=== PATIENT | female | born 1980 | race Caucasian/White ===

== ENCOUNTER 2016-10-28 21:21 | Emergency (ER) | payer OTHER ==
[~2016-10-28] VITALS: Ht 157.5 cm; Wt 75.6 kg
[~2016-10-28 21:21] MED LIST: ALPRAZOLAM1 MG PO; AMOXICILLIN500 MG OR; AMOXICILLIN500 MG PO; AMOXICILLIN875 MG PO; AMOXIL500 MG OR; ANBESOL MT; B-12500 MC1 PO; BACTRIM DS1 TAB PO; BENADRYL DF25 MG OR; BENTYL10 MG PO; BUSPIRONE5 MG PO; CARAFATE1 GM PO; CEPHALEXIN500 M1 PO; CIPRO500 MG OR; CIPRO500 MG PO; CIPROFLOXACN500 MG PO; CLARITIN10 MG OR; CODEINE OR; CVS OMEPRAZOLE20 MG PO; DARVOCET N-100100 - OR; DOXYCYC MONO100 M2 PO; E.E.S. 400400 MG OR; FLAGYL500 MG PO; FLEXERIL PO; HM OMEPRAZOLE20 MG PO; IBUPROFEN800 MG OR; LORTAB 1010 MG PO; LORTAB 5 OR; LORTAB 7.5-3251 TAB PO; LORTAB5 PO; MEDDOSEPAK PO; METRONIDAZOL500 MG PO; MOTRIN800 MG OR; NAPROSYN500 MG PO; NAPROXEN500 MG OR; NEXIUM40 M1 PO; NEXIUM40 MG PO; NO HOME MEDS; NO MEDS; OMEPRAZOLE20 MG PO; OMEPRAZOLE40 MG PO; ONDANSETRON4 MG OR; ORAJE1 MT; PANTOPRAZOLE SO40 M1 PO; PENICILLN VK500 MG OR; PENICILLN VK500 MG PO; PERCOCET 5/325M1 TAB OR; PERCOCET 5/325M1 TAB PO; PERIDEX0.12 % MT; PHENERGAN25 MG/TAB PO; PREVACID30 M1 PO; PREVACID30 M2 PO; PREVACID30 M3 PO; PREVPAC OR; PRILOSEC40 MG PO; PROMETHAZINE25 MG OR; PROMETHAZINE25 MG PO; PROTONIX40 M2 PO; PROTONIX40 MG PO; PYRIDIUM200 MG PO; QUETIAPINE FUM400 MG PO; REGLAN10 MG PO; REMERON15 MG PO; ROBITUSSIN AC10 ML OR; SEPTRA DS1 TAB OR; TRAMADOL HCL50 MG OR; TRAMADOL HCL50 MG PO; TRILEPTAL150 M1 PO; TRIMOX500 MG OR; ULTRAM50 M1 PO; ULTRAM50 MG OR; ULTRAM50 MG PO; VENTOLIN HFA IN; VITAMIN B-12500 MC1 SL; XANAX1 MG PO; ZANTAC150 M1 OR; ZOCOR20 MG OR; ZOFRAN ODT4 MG PO; ZOFRAN ODT8 MG PO; ZOFRAN ODT8 MG SL; ZOFRAN4 MG OR; ZOFRAN4 MG/TAB PO; [UNRECOGNIZED DRUG - OTHER] OR; [UNRECOGNIZED DRUG - REMARK] OR
[2016-10-28] MEDS ORDERED: PROTONIX40 M2 PO (21:54)
[2016-10-28] MEDS ORDERED: CARAFATE PO (21:54)
[2016-10-28 22:37] LABS: URINE BILIRUBIN - DIPSTICK NEGATIVE (NEGATIVE); URINE BLOOD DIPSTICK NEGATIVE (NEGATIVE); URINE CLARITY CLEAR; URINE COLOR YELLOW; URINE GLUCOSE - DIPSTICK NEGATIVE (NEGATIVE); URINE KETONE NEGATIVE (NEGATIVE); URINE LEUK ESTERASE NEGATIVE (NEGATIVE); URINE NITRITE - DIPSTICK NEGATIVE (Negative); URINE PH 7.5 (4.5-8.0); URINE PROTEIN - DIPSTICK TRACE mg/dL (NEG-TRACE); URINE SPECIFIC GRAVITY 1.015
[2016-10-28 22:40] LABS: HEMATOCRIT 38.7 % (37.0-47.0); HEMOGLOBIN 12.9 g/dl (12.0-16.0); IMMATURE GRANULOCYTES 0.1 % (0.0-1.0); MEAN CELL VOLUME 92.4 fL CALC (80.0-100.0); MEAN CORPUSCULAR HGB 30.8 pG CALC (26.0-32.0); MEAN CORPUSCULAR HGB CONC 33.3 g/L CALC (32.0-36.0); NEUT# 3.71 thou/uL (2.00-7.15); RED BLOOD COUNT 4.19 mill/uL (4.20-5.60); RED CELL DISTRI WIDTH 14.5 % (11.5-15.5)
[2016-10-28 22:57] LABS: ALBUMIN 3.7 g/dL (3.2-5.0); ALKALINE PHOSPHATASE 79 u/l (38-126); AMYLASE 73 u/l (30-110); ANION GAP 15 (6-22 (CALC)); BILIRUBIN, TOTAL 0.3 mg/dL (0.0-1.4); BUN 12 mg/dL (7-17); BUN/CREATININE RATIO 16 (12-20 (CALC)); CALCIUM 9.3 mg/dL (8.4-10.2); CARBON DIOXIDE 28 mmol/l (22-30); CHLORIDE 99 mmol/l (95-108); CREATININE 0.7 mg/dL (0.5-1.0); GFR > 60 ML/MIN (>=60 (CALC)); GFR FOR AFR.AMER. > 60 ML/MIN (>=60 (CALC)); GLUCOSE 88 mg/dL (65-105); LIPASE 273 u/l (23-300); POTASSIUM 4.3 mmol/l (3.5-5.1); SGOT/AST 140 u/l (14-36); SGPT/ALT 197 u/l (9-52); SODIUM 137 mmol/l (137-146); TOTAL PROTEIN 6.6 g/dL (6.3-8.2)
[2016-10-28 23:15] LABS: MYOGLOBIN 13 ng/mL (0 - 62)
[2016-10-29 05:45] VITALS: BP 101/50
== END 2016-10-29 06:40 | disposition home or self-care (01) | DRG 392 ==
LOC: ED 21:21
PROVIDERS: Emergency Medicine
DX: R10.13 Epigastric pain (principal); R11.0 Nausea
CPT/HCPCS: Q9967; S0164

== ENCOUNTER 2016-11-07 00:53 | Observation (INO) | payer OTHER ==
[~2016-11-07] VITALS: Ht 154.9 cm; Wt 71.6 kg
[~2016-11-07 00:53] MED LIST changes: +CARAFATE PO
[2016-11-07 02:05] LABS: HEMATOCRIT 39.2 % (37.0-47.0); HEMOGLOBIN 13.1 g/dl (12.0-16.0); IMMATURE GRANULOCYTES 0.1 % (0.0-1.0); MEAN CELL VOLUME 92.2 fL CALC (80.0-100.0); MEAN CORPUSCULAR HGB 30.8 pG CALC (26.0-32.0); MEAN CORPUSCULAR HGB CONC 33.4 g/L CALC (32.0-36.0); NEUT# 2.44 thou/uL (2.00-7.15); RED BLOOD COUNT 4.25 mill/uL (4.20-5.60); RED CELL DISTRI WIDTH 14.2 % (11.5-15.5)
[2016-11-07 02:18] LABS: ALBUMIN 3.8 g/dL (3.2-5.0); ALKALINE PHOSPHATASE 147 u/l (38-126); AMYLASE 148 u/l (30-110); ANION GAP 13 (6-22 (CALC)); BILIRUBIN, TOTAL 0.7 mg/dL (0.0-1.4); BUN 11 mg/dL (7-17); BUN/CREATININE RATIO 11 (12-20 (CALC)); CARBON DIOXIDE 30 mmol/l (22-30); CHLORIDE 100 mmol/l (95-108); GFR > 60 ML/MIN (>=60 (CALC)); GFR FOR AFR.AMER. > 60 ML/MIN (>=60 (CALC)); GLUCOSE 78 mg/dL (65-105); LIPASE 621 u/l (23-300); POTASSIUM 3.6 mmol/l (3.5-5.1); SGOT/AST 424 u/l (14-36); SGPT/ALT 737 u/l (9-52); SODIUM 139 mmol/l (137-146); TOTAL PROTEIN 7.4 g/dL (6.3-8.2)
[2016-11-07 02:29] LABS: MYOGLOBIN 29 ng/mL (0 - 62)
[2016-11-07 07:30] VITALS: BP 91/63
[2016-11-07 14:18] VITALS: BP 85/55
[2016-11-07 19:05] VITALS: BP 95/65
[2016-11-07 23:35] VITALS: BP 100/70
[2016-11-08 03:30] VITALS: BP 99/70
[2016-11-08 05:29] LABS: ALBUMIN 2.6 g/dL (3.2-5.0); ALKALINE PHOSPHATASE 119 u/l (38-126); AMYLASE 47 u/l (30-110); ANION GAP 9 (6-22 (CALC)); BUN 7 mg/dL (7-17); BUN/CREATININE RATIO 11 (12-20 (CALC)); CALCIUM 8.4 mg/dL (8.4-10.2); CARBON DIOXIDE 22 mmol/l (22-30); CHLORIDE 111 mmol/l (95-108); CREATININE 0.7 mg/dL (0.5-1.0); GFR > 60 ML/MIN (>=60 (CALC)); GFR FOR AFR.AMER. > 60 ML/MIN (>=60 (CALC)); GLUCOSE 102 mg/dL (65-105); HEMATOCRIT 37.3 % (37.0-47.0); HEMOGLOBIN 11.9 g/dl (12.0-16.0); IMMATURE GRANULOCYTES 0.4 % (0.0-1.0); LIPASE 98 u/l (23-300); MEAN CELL VOLUME 97.6 fL CALC (80.0-100.0); MEAN CORPUSCULAR HGB 31.2 pG CALC (26.0-32.0); MEAN CORPUSCULAR HGB CONC 31.9 g/L CALC (32.0-36.0); NEUT# 2.5 thou/uL (2.00-7.15); POTASSIUM 4.7 mmol/l (3.5-5.1); RED BLOOD COUNT 3.82 mill/uL (4.20-5.60); RED CELL DISTRI WIDTH 14.4 % (11.5-15.5); SGOT/AST 398 u/l (14-36); SGPT/ALT 576 u/l (9-52); SODIUM 137 mmol/l (137-146); TOTAL PROTEIN 5.6 g/dL (6.3-8.2)
[2016-11-08 07:56] VITALS: BP 106/74
[2016-11-08 11:20] VITALS: BP 85/56
[2016-11-08] MEDS ORDERED: PROTONIX40 M2 PO (12:55)
[2016-11-08] MEDS ORDERED: PERCOCET 5/325M1 TAB PO (12:55)
[2016-11-08] MEDS ORDERED: CARAFATE PO (12:55)
[2016-11-08] MEDS ORDERED: CREON3000 UNIT PO (13:01)
== END 2016-11-08 13:55 | disposition home or self-care (01) | DRG 440 ==
LOC: ENPENDDIS → ED 00:53 → ED-I 06:13 → ED 06:21 → MS2 06:22
PROVIDERS: Emergency Medicine; ADMIT Internal Medicine; ATTEND Internal Medicine
DX: K85.90 Acute pancreatitis without necrosis or infection, unspecified (principal); K25.9 Gastric ulcer, unspecified as acute or chronic, without hemorrhage or perforation; K86.0 Alcohol-induced chronic pancreatitis; K21.9 Gastro-esophageal reflux disease without esophagitis; F17.210 Nicotine dependence, cigarettes, uncomplicated; F41.9 Anxiety disorder, unspecified; F32.9 Major depressive disorder, single episode, unspecified; F12.90 Cannabis use, unspecified, uncomplicated; Z91.14 Patient's other noncompliance with medication regimen; Z76.5 Malingerer [conscious simulation]
CPT/HCPCS: S0164

== ENCOUNTER 2016-11-14 19:13 | Emergency (ER) | payer OTHER ==
[~2016-11-14] VITALS: Ht 154.9 cm; Wt 74.4 kg
[~2016-11-14 19:13] MED LIST changes: +CREON3000 UNIT PO
[2016-11-14 20:56] LABS: HEMATOCRIT 37.1 % (37.0-47.0); HEMOGLOBIN 12.2 g/dl (12.0-16.0); IMMATURE GRANULOCYTES 0.2 % (0.0-1.0); MEAN CELL VOLUME 93.5 fL CALC (80.0-100.0); MEAN CORPUSCULAR HGB 30.7 pG CALC (26.0-32.0); MEAN CORPUSCULAR HGB CONC 32.9 g/L CALC (32.0-36.0); NEUT# 3.29 thou/uL (2.00-7.15); RED BLOOD COUNT 3.97 mill/uL (4.20-5.60); RED CELL DISTRI WIDTH 14.8 % (11.5-15.5)
[2016-11-14 21:18] LABS: ALBUMIN 3.4 g/dL (3.2-5.0); ALKALINE PHOSPHATASE 120 u/l (38-126); AMYLASE 58 u/l (30-110); ANION GAP 13 (6-22 (CALC)); BILIRUBIN, TOTAL 0.4 mg/dL (0.0-1.4); BUN 7 mg/dL (7-17); BUN/CREATININE RATIO 9 (12-20 (CALC)); CALCIUM 9.2 mg/dL (8.4-10.2); CARBON DIOXIDE 24 mmol/l (22-30); CHLORIDE 106 mmol/l (95-108); CREATININE 0.7 mg/dL (0.5-1.0); GFR > 60 ML/MIN (>=60 (CALC)); GFR FOR AFR.AMER. > 60 ML/MIN (>=60 (CALC)); GLUCOSE 90 mg/dL (65-105); LIPASE 154 u/l (23-300); POTASSIUM 4.1 mmol/l (3.5-5.1); SGOT/AST 46 u/l (14-36); SGPT/ALT 236 u/l (9-52); SODIUM 138 mmol/l (137-146); TOTAL PROTEIN 6.6 g/dL (6.3-8.2)
[2016-11-14 21:40] LABS: URINE BILIRUBIN - DIPSTICK NEGATIVE (NEGATIVE); URINE BLOOD DIPSTICK NEGATIVE (NEGATIVE); URINE CLARITY CLEAR; URINE COLOR YELLOW; URINE GLUCOSE - DIPSTICK NEGATIVE (NEGATIVE); URINE KETONE NEGATIVE (NEGATIVE); URINE LEUK ESTERASE NEGATIVE (NEGATIVE); URINE NITRITE - DIPSTICK NEGATIVE (Negative); URINE PH 6.5 (4.5-8.0); URINE PROTEIN - DIPSTICK NEGATIVE (NEG-TRACE); URINE SPECIFIC GRAVITY <=1.005; URINE UROBILINOGEN - DIPSTICK 0.2 E.U./dL (0.2)
[2016-11-15 00:10] VITALS: BP 102/66
== END 2016-11-15 00:10 | disposition home or self-care (01) | DRG 392 ==
LOC: ED 19:13
PROVIDERS: Emergency Medicine
DX: R10.11 Right upper quadrant pain (principal); R11.2 Nausea with vomiting, unspecified; R10.12 Left upper quadrant pain
CPT/HCPCS: S0164

== ENCOUNTER 2016-11-20 20:21 | Emergency (ER) | payer OTHER ==
[~2016-11-20] VITALS: Ht 154.9 cm; Wt 73.6 kg
[2016-11-20 21:03] LABS: HEMATOCRIT 39.1 % (37.0-47.0); HEMOGLOBIN 12.9 g/dl (12.0-16.0); IMMATURE GRANULOCYTES 0.2 % (0.0-1.0); MEAN CELL VOLUME 92.4 fL CALC (80.0-100.0); MEAN CORPUSCULAR HGB 30.5 pG CALC (26.0-32.0); NEUT# 9.95 thou/uL (2.00-7.15); RED BLOOD COUNT 4.23 mill/uL (4.20-5.60)
[2016-11-20 21:04] LABS: URINE BILIRUBIN - DIPSTICK NEGATIVE (NEGATIVE); URINE BLOOD DIPSTICK NEGATIVE (NEGATIVE); URINE CLARITY CLEAR; URINE COLOR YELLOW; URINE GLUCOSE - DIPSTICK NEGATIVE (NEGATIVE); URINE KETONE NEGATIVE (NEGATIVE); URINE LEUK ESTERASE NEGATIVE (NEGATIVE); URINE NITRITE - DIPSTICK NEGATIVE (Negative); URINE PH 5.5 (4.5-8.0); URINE PROTEIN - DIPSTICK NEGATIVE (NEG-TRACE); URINE SPECIFIC GRAVITY <=1.005; URINE UROBILINOGEN - DIPSTICK 0.2 E.U./dL (0.2)
[2016-11-20 21:16] LABS: ALBUMIN 4.2 g/dL (3.2-5.0); ALKALINE PHOSPHATASE 96 u/l (38-126); AMYLASE 79 u/l (30-110); ANION GAP 14 (6-22 (CALC)); BILIRUBIN, TOTAL 0.3 mg/dL (0.0-1.4); BUN 13 mg/dL (7-17); BUN/CREATININE RATIO 16 (12-20 (CALC)); CALCIUM 9.6 mg/dL (8.4-10.2); CARBON DIOXIDE 23 mmol/l (22-30); CHLORIDE 103 mmol/l (95-108); CREATININE 0.8 mg/dL (0.5-1.0); GFR > 60 ML/MIN (>=60 (CALC)); GFR FOR AFR.AMER. > 60 ML/MIN (>=60 (CALC)); GLUCOSE 87 mg/dL (65-105); LIPASE 341 u/l (23-300); POTASSIUM 4.7 mmol/l (3.5-5.1); SGOT/AST 26 u/l (14-36); SGPT/ALT 65 u/l (9-52); SODIUM 135 mmol/l (137-146); TOTAL PROTEIN 7.6 g/dL (6.3-8.2)
[2016-11-20 21:28] LABS: MYOGLOBIN 14 ng/mL (0 - 62)
[2016-11-20 23:29] VITALS: BP 99/59
== END 2016-11-20 23:32 | disposition home or self-care (01) | DRG 816 ==
LOC: ED 20:21
PROVIDERS: Emergency Medicine
DX: D72.829 Elevated white blood cell count, unspecified (principal); G89.29 Other chronic pain; R10.84 Generalized abdominal pain

== ENCOUNTER 2016-11-25 17:03 | Emergency (ER) | payer OTHER ==
[~2016-11-25] VITALS: Ht 154.9 cm; Wt 70.0 kg
[2016-11-25 18:27] LABS: HEMOGLOBIN 12.5 g/dl (12.0-16.0); IMMATURE GRANULOCYTES 0.2 % (0.0-1.0); MEAN CELL VOLUME 93.8 fL CALC (80.0-100.0); MEAN CORPUSCULAR HGB 30.9 pG CALC (26.0-32.0); MEAN CORPUSCULAR HGB CONC 32.9 g/L CALC (32.0-36.0); NEUT# 3.25 thou/uL (2.00-7.15); RED BLOOD COUNT 4.05 mill/uL (4.20-5.60); RED CELL DISTRI WIDTH 13.8 % (11.5-15.5); URINE BILIRUBIN - DIPSTICK NEGATIVE (NEGATIVE); URINE BLOOD DIPSTICK NEGATIVE (NEGATIVE); URINE CLARITY CLEAR; URINE COLOR YELLOW; URINE GLUCOSE - DIPSTICK NEGATIVE (NEGATIVE); URINE KETONE NEGATIVE (NEGATIVE); URINE LEUK ESTERASE NEGATIVE (NEGATIVE); URINE NITRITE - DIPSTICK NEGATIVE (Negative); URINE PROTEIN - DIPSTICK NEGATIVE (NEG-TRACE); URINE UROBILINOGEN - DIPSTICK 0.2 E.U./dL (0.2)
[2016-11-25 18:28] LABS: ALBUMIN 3.6 g/dL (3.2-5.0); ALKALINE PHOSPHATASE 66 u/l (38-126); AMYLASE 65 u/l (30-110); ANION GAP 11 (6-22 (CALC)); BILIRUBIN, TOTAL 0.3 mg/dL (0.0-1.4); BUN 18 mg/dL (7-17); BUN/CREATININE RATIO 23 (12-20 (CALC)); CALCIUM 8.9 mg/dL (8.4-10.2); CARBON DIOXIDE 27 mmol/l (22-30); CHLORIDE 103 mmol/l (95-108); CREATININE 0.8 mg/dL (0.5-1.0); GFR > 60 ML/MIN (>=60 (CALC)); GFR FOR AFR.AMER. > 60 ML/MIN (>=60 (CALC)); GLUCOSE 80 mg/dL (65-105); LIPASE 96 u/l (23-300); POTASSIUM 4.1 mmol/l (3.5-5.1); SGOT/AST 40 u/l (14-36); SGPT/ALT 47 u/l (9-52); SODIUM 137 mmol/l (137-146); TOTAL PROTEIN 6.7 g/dL (6.3-8.2)
[2016-11-25 19:15] VITALS: BP 113/74
== END 2016-11-25 19:15 | disposition left against medical advice (07) | DRG 392 ==
LOC: ED 17:03
PROVIDERS: Emergency Medicine
DX: R10.11 Right upper quadrant pain (principal); B19.10 Unspecified viral hepatitis B without hepatic coma; K21.9 Gastro-esophageal reflux disease without esophagitis; F41.9 Anxiety disorder, unspecified; F17.210 Nicotine dependence, cigarettes, uncomplicated; Z91.19 Patient's noncompliance with other medical treatment and regimen

== ENCOUNTER 2016-12-11 21:37 | Emergency (ER) | payer OTHER ==
[~2016-12-11] VITALS: Ht 154.9 cm; Wt 76.4 kg
[2016-12-11 22:05] VITALS: BP 114/68
[2016-12-11] MEDS ORDERED: CARAFATE1 GM PO (22:07)
[2016-12-11 22:54] LABS: HEMATOCRIT 36.9 % (37.0-47.0); HEMOGLOBIN 12.4 g/dl (12.0-16.0); IMMATURE GRANULOCYTES 0.3 % (0.0-1.0); MEAN CELL VOLUME 91.6 fL CALC (80.0-100.0); MEAN CORPUSCULAR HGB 30.8 pG CALC (26.0-32.0); MEAN CORPUSCULAR HGB CONC 33.6 g/L CALC (32.0-36.0); NEUT# 3.77 thou/uL (2.00-7.15); RED BLOOD COUNT 4.03 mill/uL (4.20-5.60); RED CELL DISTRI WIDTH 13.8 % (11.5-15.5)
[2016-12-11 22:58] LABS: URINE BILIRUBIN - DIPSTICK NEGATIVE (NEGATIVE); URINE BLOOD DIPSTICK NEGATIVE (NEGATIVE); URINE CLARITY CLEAR; URINE COLOR YELLOW; URINE GLUCOSE - DIPSTICK NEGATIVE (NEGATIVE); URINE KETONE NEGATIVE (NEGATIVE); URINE LEUK ESTERASE NEGATIVE (NEGATIVE); URINE NITRITE - DIPSTICK NEGATIVE (Negative); URINE PH 6.5 (4.5-8.0); URINE PROTEIN - DIPSTICK NEGATIVE (NEG-TRACE); URINE SPECIFIC GRAVITY <=1.005; URINE UROBILINOGEN - DIPSTICK 0.2 E.U./dL (0.2)
[2016-12-11 23:08] LABS: ALBUMIN 3.9 g/dL (3.2-5.0); ALKALINE PHOSPHATASE 62 u/l (38-126); AMYLASE 48 u/l (30-110); ANION GAP 12 (6-22 (CALC)); BILIRUBIN, TOTAL 0.2 mg/dL (0.0-1.4); BUN 9 mg/dL (7-17); BUN/CREATININE RATIO 13 (12-20 (CALC)); CALCIUM 9.1 mg/dL (8.4-10.2); CARBON DIOXIDE 26 mmol/l (22-30); CHLORIDE 105 mmol/l (95-108); CREATININE 0.7 mg/dL (0.5-1.0); GFR > 60 ML/MIN (>=60 (CALC)); GFR FOR AFR.AMER. > 60 ML/MIN (>=60 (CALC)); GLUCOSE 88 mg/dL (65-105); LIPASE 123 u/l (23-300); SGOT/AST 101 u/l (14-36); SGPT/ALT 129 u/l (9-52); SODIUM 139 mmol/l (137-146); TOTAL PROTEIN 6.5 g/dL (6.3-8.2)
== END 2016-12-11 22:55 | disposition left against medical advice (07) | DRG 391 ==
LOC: ED 21:37
PROVIDERS: Emergency Medicine
DX: R10.9 Unspecified abdominal pain (principal); K85.90 Acute pancreatitis without necrosis or infection, unspecified; B19.10 Unspecified viral hepatitis B without hepatic coma; K21.9 Gastro-esophageal reflux disease without esophagitis; F41.9 Anxiety disorder, unspecified; F17.210 Nicotine dependence, cigarettes, uncomplicated; Z91.19 Patient's noncompliance with other medical treatment and regimen
CPT/HCPCS: S0164

== ENCOUNTER 2017-02-06 13:30 | Emergency (ER) | payer OTHER ==
[~2017-02-06] VITALS: Ht 154.9 cm; Wt 100.0 kg
[2017-02-06] MEDS ORDERED: PENICILLN VK500 MG PO (13:52)
[2017-02-06] MEDS ORDERED: LORTAB 5-325 MG1 TAB PO (13:52)
[2017-02-06 13:55] VITALS: BP 118/84
== END 2017-02-06 13:55 | disposition home or self-care (01) | DRG 159 ==
LOC: ED 13:30
DX: K08.89 Other specified disorders of teeth and supporting structures (principal); K02.9 Dental caries, unspecified

== ENCOUNTER 2017-03-01 16:39 | Emergency (ER) | payer OTHER ==
[~2017-03-01] VITALS: Ht 154.9 cm; Wt 68.1 kg
[~2017-03-01 16:39] MED LIST changes: +LORTAB 5-325 MG1 TAB PO
[2017-03-01] MEDS ORDERED: PHENERGAN25 MG/TAB PO (17:01)
[2017-03-01] MEDS ORDERED: PROZAC20 MG PO (17:02)
[2017-03-01] MEDS ORDERED: PEPCID20 MG PO (17:02)
[2017-03-01 17:37] LABS: HEMATOCRIT 36.7 % (37.0-47.0); HEMOGLOBIN 12.2 g/dl (12.0-16.0); IMMATURE GRANULOCYTES 0.4 % (0.0-1.0); MEAN CELL VOLUME 88.9 fL CALC (80.0-100.0); MEAN CORPUSCULAR HGB 29.5 pG CALC (26.0-32.0); MEAN CORPUSCULAR HGB CONC 33.2 g/L CALC (32.0-36.0); NEUT# 3.95 thou/uL (2.00-7.15); RED BLOOD COUNT 4.13 mill/uL (4.20-5.60); RED CELL DISTRI WIDTH 13.9 % (11.5-15.5); URINE BILIRUBIN - DIPSTICK NEGATIVE (NEGATIVE); URINE BLOOD DIPSTICK NEGATIVE (NEGATIVE); URINE CLARITY OTHER; URINE COLOR YELLOW; URINE GLUCOSE - DIPSTICK NEGATIVE (NEGATIVE); URINE KETONE NEGATIVE (NEGATIVE); URINE LEUK ESTERASE NEGATIVE (NEGATIVE); URINE NITRITE - DIPSTICK NEGATIVE (Negative); URINE PH 6.5 (4.5-8.0); URINE PROTEIN - DIPSTICK NEGATIVE (NEG-TRACE); URINE UROBILINOGEN - DIPSTICK 0.2 E.U./dL (0.2)
[2017-03-01 17:54] LABS: ALBUMIN 4.4 g/dL (3.2-5.0); ALKALINE PHOSPHATASE 56 u/l (38-126); AMYLASE 89 u/l (30-110); ANION GAP 15 (6-22 (CALC)); BILIRUBIN, TOTAL 0.6 mg/dL (0.0-1.4); BUN 12 mg/dL (7-17); BUN/CREATININE RATIO 20 (12-20 (CALC)); CALCIUM 9.3 mg/dL (8.4-10.2); CARBON DIOXIDE 24 mmol/l (22-30); CHLORIDE 104 mmol/l (95-108); CREATININE 0.6 mg/dL (0.5-1.0); GFR > 60 ML/MIN (>=60 (CALC)); GFR FOR AFR.AMER. > 60 ML/MIN (>=60 (CALC)); GLUCOSE 101 mg/dL (65-105); LIPASE 335 u/l (23-300); POTASSIUM 3.8 mmol/l (3.5-5.1); SGOT/AST 18 u/l (14-36); SGPT/ALT 25 u/l (9-52); SODIUM 139 mmol/l (137-146); TOTAL PROTEIN 7.7 g/dL (6.3-8.2)
[2017-03-01 18:06] LABS: MYOGLOBIN 15 ng/mL (0 - 62)
[2017-03-01] MEDS ORDERED: ZOFRAN4 MG/TAB PO (20:28)
[2017-03-01 20:50] VITALS: BP 111/67
== END 2017-03-01 21:06 | disposition home or self-care (01) | DRG 392 ==
LOC: ED 16:39
PROVIDERS: Emergency Medicine
DX: R10.11 Right upper quadrant pain (principal); B19.10 Unspecified viral hepatitis B without hepatic coma; G89.29 Other chronic pain; K21.9 Gastro-esophageal reflux disease without esophagitis; F41.9 Anxiety disorder, unspecified; Z96.89 Presence of other specified functional implants
CPT/HCPCS: Q9967

== ENCOUNTER 2017-04-30 10:06 | Emergency (ER) | payer OTHER ==
[~2017-04-30] VITALS: Ht 154.9 cm; Wt 61.0 kg
[~2017-04-30 10:06] MED LIST changes: +PEPCID20 MG PO; +PROZAC20 MG PO
[2017-04-30 11:29] LABS: HEMATOCRIT 39.3 % (37.0-47.0); HEMOGLOBIN 13.2 g/dl (12.0-16.0); IMMATURE GRANULOCYTES 0.2 % (0.0-1.0); MEAN CELL VOLUME 89.1 fL CALC (80.0-100.0); MEAN CORPUSCULAR HGB 29.9 pG CALC (26.0-32.0); MEAN CORPUSCULAR HGB CONC 33.6 g/L CALC (32.0-36.0); NEUT# 3.88 thou/uL (2.00-7.15); RED BLOOD COUNT 4.41 mill/uL (4.20-5.60); RED CELL DISTRI WIDTH 13.6 % (11.5-15.5)
[2017-04-30 12:04] LABS: ALKALINE PHOSPHATASE 64 u/l (38-126); ANION GAP 14 (6-22 (CALC)); BILIRUBIN, TOTAL 0.4 mg/dL (0.0-1.4); BUN 14 mg/dL (7-17); BUN/CREATININE RATIO 22 (12-20 (CALC)); CALCIUM 9.5 mg/dL (8.4-10.2); CARBON DIOXIDE 22 mmol/l (22-30); CHLORIDE 109 mmol/l (95-108); CREATININE 0.6 mg/dL (0.5-1.0); GFR > 60 ML/MIN (>=60 (CALC)); GFR FOR AFR.AMER. > 60 ML/MIN (>=60 (CALC)); GLUCOSE 94 mg/dL (65-105); LIPASE 310 u/l (23-300); POTASSIUM 4.1 mmol/l (3.5-5.1); SGOT/AST 23 u/l (14-36); SGPT/ALT 37 u/l (9-52); SODIUM 141 mmol/l (137-146)
[2017-04-30 13:14] LABS: URINE BILIRUBIN - DIPSTICK NEGATIVE (NEGATIVE); URINE BLOOD DIPSTICK NEGATIVE (NEGATIVE); URINE CLARITY CLEAR; URINE COLOR YELLOW; URINE GLUCOSE - DIPSTICK NEGATIVE (NEGATIVE); URINE KETONE NEGATIVE (NEGATIVE); URINE LEUK ESTERASE NEGATIVE (NEGATIVE); URINE NITRITE - DIPSTICK NEGATIVE (Negative); URINE PROTEIN - DIPSTICK NEGATIVE (NEG-TRACE); URINE UROBILINOGEN - DIPSTICK 0.2 E.U./dL (0.2)
[2017-04-30 15:32] VITALS: BP 109/65
== END 2017-04-30 15:43 | disposition home or self-care (01) | DRG 439 ==
LOC: ED 10:06
PROVIDERS: Family Medicine
DX: K85.90 Acute pancreatitis without necrosis or infection, unspecified (principal); B19.10 Unspecified viral hepatitis B without hepatic coma; R10.13 Epigastric pain; K21.9 Gastro-esophageal reflux disease without esophagitis; F41.9 Anxiety disorder, unspecified; Z93.1 Gastrostomy status

== ENCOUNTER 2017-08-07 11:33 | Emergency (ER) | payer SELFPAY ==
[~2017-08-07] VITALS: Ht 154.9 cm; Wt 68.0 kg
[2017-08-07 11:42] VITALS: BP 115/82
== END 2017-08-07 13:10 | disposition left against medical advice (07) | DRG 951 ==
LOC: ED 11:33 → LWOBS 13:10
DX: Z91.19 Patient's noncompliance with other medical treatment and regimen (principal)

== ENCOUNTER 2017-08-18 12:06 | Emergency (ER) | payer SELFPAY ==
[~2017-08-18] VITALS: Ht 154.9 cm; Wt 71.2 kg
[2017-08-18 13:47] LABS: HEMATOCRIT 41.3 % (37.0-47.0); HEMOGLOBIN 14.1 g/dl (12.0-16.0); IMMATURE GRANULOCYTES 0.2 % (0.0-1.0); MEAN CELL VOLUME 86.9 fL CALC (80.0-100.0); MEAN CORPUSCULAR HGB 29.7 pG CALC (26.0-32.0); MEAN CORPUSCULAR HGB CONC 34.1 g/L CALC (32.0-36.0); NEUT# 3.42 thou/uL (2.00-7.15); RED BLOOD COUNT 4.75 mill/uL (4.20-5.60); RED CELL DISTRI WIDTH 15.9 % (11.5-15.5)
[2017-08-18 13:54] LABS: URINE BLOOD DIPSTICK TRACE-INTACT (NEGATIVE); URINE COLOR YELLOW; URINE GLUCOSE - DIPSTICK NEGATIVE (NEGATIVE); URINE KETONE TRACE mg/dL (NEGATIVE); URINE LEUK ESTERASE NEGATIVE (NEGATIVE); URINE NITRITE - DIPSTICK NEGATIVE (Negative); URINE PH 5.5 (4.5-8.0); URINE PROTEIN - DIPSTICK 30 mg/dL (NEG-TRACE); URINE SPECIFIC GRAVITY >=1.030
[2017-08-18 13:59] LABS: URINE BILIRUBIN - DIPSTICK SMALL (NEGATIVE); URINE CLARITY CLEAR
[2017-08-18 14:02] LABS: ALKALINE PHOSPHATASE 83 u/l (38-126); AMYLASE 128 u/l (30-110); ANION GAP 21 (6-22 (CALC)); BILIRUBIN, TOTAL 0.7 mg/dL (0.0-1.4); BUN 18 mg/dL (7-17); BUN/CREATININE RATIO 23 (12-20 (CALC)); CARBON DIOXIDE 27 mmol/l (22-30); CHLORIDE 97 mmol/l (95-108); CREATININE 0.8 mg/dL (0.5-1.0); GFR > 60 ML/MIN (>=60 (CALC)); GFR FOR AFR.AMER. > 60 ML/MIN (>=60 (CALC)); LIPASE 459 u/l (23-300); POTASSIUM 3.5 mmol/l (3.5-5.1); SGOT/AST 34 u/l (14-36); SGPT/ALT 33 u/l (9-52); SODIUM 141 mmol/l (137-146)
[2017-08-18 14:11] LABS: URINE SQUAMOUS EPITHELIAL CELL MANY EPI/hpf (0-FEW)
[2017-08-18 14:55] LABS: BARBITURATES NEGATIVE (NEGATIVE); COCAINE NEGATIVE (NEGATIVE); METHADONE NEGATIVE (NEGATIVE); TETRAHYDROCANNABIONOL POSITIVE (NEGATIVE); TRICYLIC ANTIDEPRESSANTS NEGATIVE (NEGATIVE)
[2017-08-18 14:56] LABS: OXCYCODONE NEGATIVE (NEGATIVE)
[2017-08-18 16:30] VITALS: BP 109/62
== END 2017-08-18 16:40 | disposition home or self-care (01) | DRG 440 ==
LOC: ED 12:06
PROVIDERS: Emergency Medicine
DX: K86.1 Other chronic pancreatitis (principal); F12.90 Cannabis use, unspecified, uncomplicated; F15.90 Other stimulant use, unspecified, uncomplicated; R50.9 Fever, unspecified; R11.2 Nausea with vomiting, unspecified; R10.11 Right upper quadrant pain
CPT/HCPCS: Q9967

== ENCOUNTER 2017-10-13 19:36 | Emergency (ER) | payer SELFPAY ==
[~2017-10-13] VITALS: Ht 154.9 cm; Wt 73.6 kg
[2017-10-13 20:44] LABS: HEMATOCRIT 38.4 % (37.0-47.0); HEMOGLOBIN 12.8 g/dl (12.0-16.0); IMMATURE GRANULOCYTES 0.2 % (0.0-1.0); MEAN CORPUSCULAR HGB 30.3 pG CALC (26.0-32.0); MEAN CORPUSCULAR HGB CONC 33.3 g/L CALC (32.0-36.0); NEUT# 4.12 thou/uL (2.00-7.15); RED BLOOD COUNT 4.22 mill/uL (4.20-5.60); RED CELL DISTRI WIDTH 14.2 % (11.5-15.5)
[2017-10-13 20:58] LABS: ALKALINE PHOSPHATASE 66 u/l (38-126); ANION GAP 16 (6-22 (CALC)); BILIRUBIN, TOTAL 0.2 mg/dL (0.0-1.4); BUN 9 mg/dL (7-17); BUN/CREATININE RATIO 13 (12-20 (CALC)); CARBON DIOXIDE 23 mmol/l (22-30); CHLORIDE 106 mmol/l (95-108); CREATININE 0.7 mg/dL (0.5-1.0); GFR > 60 ML/MIN (>=60 (CALC)); GFR FOR AFR.AMER. > 60 ML/MIN (>=60 (CALC)); POTASSIUM 3.8 mmol/l (3.5-5.1); SGOT/AST 12 u/l (14-36); SGPT/ALT 27 u/l (9-52); SODIUM 141 mmol/l (137-146); TOTAL PROTEIN 6.5 g/dL (6.3-8.2)
[2017-10-13 21:00] LABS: ALBUMIN 3.6 g/dL (3.2-5.0)
[2017-10-14 01:16] VITALS: BP 120/75
== END 2017-10-14 01:24 | DRG 563 ==
LOC: ED 19:36
PROVIDERS: Emergency Medicine
DX: S63.91XA Sprain of unspecified part of right wrist and hand, initial encounter (principal); R22.31 Localized swelling, mass and lump, right upper limb; S61.451A Open bite of right hand, initial encounter; X58.XXXA Exposure to other specified factors, initial encounter; Y93.E9 Activity, other interior property and clothing maintenance; Y92.009 Unspecified place in unspecified non-institutional (private) residence as the place of occurrence of the external cause

== ENCOUNTER 2017-11-29 12:33 | Observation (INO) | payer SELFPAY ==
[~2017-11-29] VITALS: Ht 154.9 cm; Wt 70.0 kg
--- NOTE | 2017-11-29 12:40 | NUR ---
TO [place] ROOM
[2017-11-29 13:23] LABS: HEMATOCRIT 41.7 % (37.0-47.0); IMMATURE GRANULOCYTES 0.2 % (0.0-1.0); MEAN CELL VOLUME 92.5 fL CALC (80.0-100.0); MEAN CORPUSCULAR HGB CONC 33.6 g/L CALC (32.0-36.0); NEUT# 3.63 thou/uL (2.00-7.15); RED BLOOD COUNT 4.51 mill/uL (4.20-5.60); RED CELL DISTRI WIDTH 13.4 % (11.5-15.5)
--- NOTE | 2017-11-29 14:01 | NUR ---
PT MEDICATED FOR PAIN UPON ARRIVAL TO ROOM AND AGAIN RECENTLY. PT WITH HX PANCREATITIS STATES THAT THIS FEELS THE SAME. PT AMBULATORY TO BR FOR URINE SPECIMEN.
[2017-11-29 14:02] LABS: ALBUMIN 4.1 g/dL (3.2-5.0); ALKALINE PHOSPHATASE 56 u/l (38-126); ANION GAP 16 (6-22 (CALC)); BILIRUBIN, TOTAL 0.4 mg/dL (0.0-1.4); BUN 13 mg/dL (7-17); BUN/CREATININE RATIO 15 (12-20 (CALC)); CARBON DIOXIDE 23 mmol/l (22-30); CHLORIDE 106 mmol/l (95-108); CREATININE 0.9 mg/dL (0.5-1.0); GFR > 60 ML/MIN (>=60 (CALC)); GFR FOR AFR.AMER. > 60 ML/MIN (>=60 (CALC)); LIPASE 612 u/l (23-300); POTASSIUM 4.7 mmol/l (3.5-5.1); SGOT/AST 16 u/l (14-36); SGPT/ALT 28 u/l (9-52); SODIUM 140 mmol/l (137-146); TOTAL PROTEIN 6.9 g/dL (6.3-8.2)
[2017-11-29 14:11] LABS: URINE BILIRUBIN - DIPSTICK NEGATIVE (NEGATIVE); URINE BLOOD DIPSTICK NEGATIVE (NEGATIVE); URINE COLOR YELLOW; URINE GLUCOSE - DIPSTICK NEGATIVE (NEGATIVE); URINE KETONE NEGATIVE (NEGATIVE); URINE LEUK ESTERASE NEGATIVE (NEGATIVE); URINE NITRITE - DIPSTICK NEGATIVE (Negative); URINE PH 7.5 (4.5-8.0); URINE PROTEIN - DIPSTICK NEGATIVE (NEG-TRACE); URINE UROBILINOGEN - DIPSTICK 0.2 E.U./dL (0.2)
[2017-11-29 14:13] LABS: URINE CLARITY CLEAR
[2017-11-29 15:49] LABS: BARBITURATES NEGATIVE (NEGATIVE); COCAINE NEGATIVE (NEGATIVE); METHADONE NEGATIVE (NEGATIVE); OXCYCODONE NEGATIVE (NEGATIVE); TETRAHYDROCANNABIONOL POSITIVE (NEGATIVE); TRICYLIC ANTIDEPRESSANTS NEGATIVE (NEGATIVE)
--- NOTE | 2017-11-29 16:00 | NUR ---
PT PROVIDED DILAUDID FOR PAIN RELIEF, SEEN RESTING IN THE STRETCHER WITHOUT ANY EVIDENCE OF DISTRESS. PT AWARE OF PENDING ADMISSION, TO FLOOR SOON.
[2017-11-29] MEDS ORDERED: [UNRECOGNIZED DRUG - CODE] PO (16:10)
--- NOTE | 2017-11-29 16:40 | NUR ---
PT TAKEN TO ROOM 268 WITHOUT INCIDENT, REPORT WAS TO GEOFF.
[2017-11-29 16:48] VITALS: BP 112/75
--- NOTE | 2017-11-29 18:01 | NUR ---
REPORT RECEIVED FROM LUIS ANGEL IN ED, PT ARRIVED ON UNIT VIA STRETCHER @ 1636 AND TRANSFERRED TO BED. MOANING/GROANING AND GUARDING ABDOMEN REPORTING RUQ PAIN RADIATING TO BACK @ 9/10. ORIENTED TO ROOM AND CALL TUCKER, WILL CONTINUE TO MONITOR AND ADDRESS NEEDS.
--- NOTE | 2017-11-29 18:04 | NUR ---
CRYING AT THIS TIME, AWAITING MEDICATION PROFILING.
--- NOTE | 2017-11-29 18:22 | NUR ---
ROCKING AND SOBBING AT THIS TIME C/O ABD PAIN, MEDICATED WITH PERCOCET, ADVISED WILL CONTINUE TO MONITOR, ASSESS AND ADDRESS.
[2017-11-29 19:00] VITALS: BP 118/67
--- NOTE | 2017-11-29 19:51 | NUR ---
PATIENT RESTING IN BED-TEARFUL WITH NO RELIEF FROM PERCOCET. PATIENT MEDICATED WITH MORPHINE 2MG IVP ORDERED FOR PAIN ALONG WITH BENEDRYL 25MG PO FOR ITCHING. PATIENT PROVIDED WITH WARM PACKS FOR COMFORT-STATES SEVERE RUQ ABD PAIN. PATIENT WITH IV SITE TO RIGHT HAND WITH IVF NS PATENT AND INFUSING AT 175CC/HR ORDERED. SITE APPEARS HEALTHY AT THIS TIME. SAFETY PRECAUTIONS REINFORCED WITH PATIENT. CALL LIGHT IN REACH. WILL CONT TO MONITOR.
--- NOTE | 2017-11-29 21:00 | NUR ---
PATIENT APPEARS SLEEPING POSITIONED ON HER LEFT SIDE WITH S/O AT BEDSIDE. IVF PATENT AT 175CC/HR. CALL LIGHT IN REACH. WILL CONT TO MONITOR
--- NOTE | 2017-11-29 22:00 | NUR ---
PATIENT AWAKE AND C/O SEVERE ABD PAIN AGAIN-TOO EARLY FOR MORPHINE-MEDICATED WITH ULTRAM FOR C/O PAIN. PATIENT ALSO STATES THAT SHE TAKE XANAX 1MG TID AND THAT SHE CAN'T SLEEP WITHOUT IT. DR. WIGGINS CALLED AND ORDER RECIEVED. WILL MEDICATE PATIENT PRN ORDERED WHEN PROFILED ON EMAR. CALL LIGHT IN REACH. WILL CONT TO MONITOR.
--- NOTE | 2017-11-29 23:49 | NUR ---
PATIENT RESTING IN BED WITH S/O RESTING ON COT PROVIDED. PATIENT CONT TO COMPLAIN OF ABD PAIN 7/10 ON PAIN SCALE. MEDICATED WITH MORPHINE 2MG IVP FOR PAIN. PATIENT WAS OFFERED HER XANAX THAT SHE REQUESTED EARLIER BUT DECLINES AT THIS TIME. IVF PATENT AND INFUSING AT 175CC VIA RIGHT HAND SITE. SAFETY PRECAUTIONS REINFORCED. CALL LIGHT IN REACH. WILL CONT TO MONITOR.
[2017-11-30 04:05] VITALS: BP 85/52
--- NOTE | 2017-11-30 04:24 | NUR ---
APPEARS SLEEPING AT THIS TIME-POSITIONED ON LEFT SIDE. IVF PATENT AND INFUSING AT 175CC/HR. CALL LIGHT IN REACH. WILL CONT TO MONITOR.
[2017-11-30 05:43] LABS: CHOLESTEROL HDL RATIO 3.5 (<4.4 (CALC))
[2017-11-30 05:49] LABS: ANION GAP 14 (6-22 (CALC)); BUN 11 mg/dL (7-17); BUN/CREATININE RATIO 16 (12-20 (CALC)); CARBON DIOXIDE 23 mmol/l (22-30); CHLORIDE 108 mmol/l (95-108); CREATININE 0.7 mg/dL (0.5-1.0); GFR > 60 ML/MIN (>=60 (CALC)); GFR FOR AFR.AMER. > 60 ML/MIN (>=60 (CALC)); HEMOGLOBIN 13.2 g/dl (12.0-16.0); IMMATURE GRANULOCYTES 0.3 % (0.0-1.0); LIPASE 157 u/l (23-300); MAGNESIUM 1.9 mg/dL (1.6-2.3); MEAN CORPUSCULAR HGB 31.4 pG CALC (26.0-32.0); NEUT# 2.52 thou/uL (2.00-7.15); POTASSIUM 4.4 mmol/l (3.5-5.1); RED BLOOD COUNT 4.21 mill/uL (4.20-5.60); RED CELL DISTRI WIDTH 13.6 % (11.5-15.5); SODIUM 140 mmol/l (137-146)
--- NOTE | 2017-11-30 07:15 | NUR ---
REPORT RECEIVED FROM DIEGO GREEN;PT RESTING IN SUPINE POSITION WITH VISITOR AT BEDSIDE;INTRODUCED SELF TO PT AND POC DISCUSSED;PT STATES "I HAVE CHRONIC PANCREATITIS AND NOTHING IS HELPING. I NEED DILAUDID";PT EDUCATED THAT DILAUDID IS NOT ORDERED AT THIS TIME BUT SHE CAN BE MEDICATED WITH PRN PERCOCET OR MORPHINE,PT REFUSES MEDICATION ADMINISTRATION;IV SITE PATENT;CALL LIGHT IN REACH;WILL CONTINUE TO MONITOR
[2017-11-30 07:56] VITALS: BP 123/54
--- NOTE | 2017-11-30 08:10 | NUR ---
PT RESTING IN BED WITH FAMILY AT BEDSIDE;VS OBTAINED AND ASSESSMENT COMPLETED;PT COMPLAINS OF ABDOMINAL PAIN RATING 8/10 ON THE PAIN SCALE AND REQUESTS PAIN MEDICATION;PT MEDICATED WITH MORPHINE 2MG IVP PER ORDER AT THIS TIME,WILL MONITOR FOR EFFECT;RESPIRATIONS EVEN AND UNLABORED ON RA,CLEAR LUNG SOUNDS;ABDOMEN SOFT ON PALPATION AND HYPOACTIVE IN ALL 4 QUADRANTS,TENDERNESS TO RUQ;STRONG PEDAL PULSES;SKIN INTACT;#22G TO RIGHT HAND INFUSING NS @ 100ML/HR,SITE APPEARS HEALTHY;NICOTINE PATCH APPLIED TO JENNIFER;PT DENIES ANY OTHER CURRENT NEEDS;CALL LIGHT IN REACH;WILL CONTINUE TO MONITOR
--- NOTE | 2017-11-30 11:50 | NUR ---
PT RESTING IN SUPINE POSITION COMPLAINING OF ABDOMINAL PAIN RATING 8/10 ON THE PAIN SCALE AND REQUESTING PAIN MEDICATION;PT MEDICATED WITH PRN LORTAB 5/325MG PO AT THIS TIME,WILL MONITOR FOR EFFECT;IV SITE PATENT INFUSING @ 100ML/HR;PT DENIES ANY OTHER CURRENT NEEDS;CALL LIGHT IN REACH;WILL CONTINUE TO MONITOR
--- NOTE | 2017-11-30 13:00 | NUR ---
PT MEDICATED WITH PRN XANAX 1MG PO FOR ANXIETY
--- NOTE | 2017-11-30 15:20 | NUR ---
PT FOUND VOMITING IN BATHROOM;MEDICATED WITH PRN ZOFRAN 4MG IVP;IV SITE PATENT INFUSING TO RIGHT HAND;VALARIE PAL NOTIFIED
[2017-11-30 16:45] VITALS: BP 100/71
--- NOTE | 2017-11-30 17:30 | NUR ---
PT COMPLAINS OF ABDOMINAL PAIN RATING 10/10 ON THE PAIN SCALE;PT MEDICATED WITH PRN MORPHINE 2MG IVP,WILL MONITOR FOR EFFECT
[2017-11-30 19:05] VITALS: BP 117/82
--- NOTE | 2017-11-30 19:30 | NUR ---
PT RESTING IN BED AWAKE. VISITOR IN ROOM. PT IS ALERT AND ORIENTED X3. PERRLA. RESP ARE EVEN AND UNLABORED. NO DISTRESS NOTED. LUNGS ARE CLEAR.HR REGULAR. PULSES PALPABLE THROUGHOUT. NO EDEMA NOTED. BS ACTIVE. #22 RH NS @100CC.HR NO REDNESS OR EDEMA NOTED. CALL LIGHT IN REACH. WILL CONTINUE TO MONITOR
--- NOTE | 2017-12-01 00:26 | NUR ---
LORTAB 5/325MG PROVIDED FOR C/O RUQ PAIN 03/20.
--- NOTE | 2017-12-01 03:32 | NUR ---
MORPHINE 2MG IV PROVIDED FOR C/O ABDOMINAL PAIN 04/19. TOLERATING PO FLUIDS. FAMILY AT BED SIDE.
[2017-12-01 04:20] VITALS: BP 111/74
[2017-12-01 05:03] LABS: HEMATOCRIT 40.2 % (37.0-47.0); HEMOGLOBIN 13.2 g/dl (12.0-16.0); MEAN CELL VOLUME 93.9 fL CALC (80.0-100.0); MEAN CORPUSCULAR HGB 30.8 pG CALC (26.0-32.0); MEAN CORPUSCULAR HGB CONC 32.8 g/L CALC (32.0-36.0); NEUT# 2.7 thou/uL (2.00-7.15); RED BLOOD COUNT 4.28 mill/uL (4.20-5.60); RED CELL DISTRI WIDTH 13.4 % (11.5-15.5)
[2017-12-01 05:20] LABS: ANION GAP 13 (6-22 (CALC)); BUN 8 mg/dL (7-17); BUN/CREATININE RATIO 12 (12-20 (CALC)); CARBON DIOXIDE 24 mmol/l (22-30); CHLORIDE 108 mmol/l (95-108); CREATININE 0.7 mg/dL (0.5-1.0); GFR > 60 ML/MIN (>=60 (CALC)); GFR FOR AFR.AMER. > 60 ML/MIN (>=60 (CALC)); LIPASE 126 u/l (23-300); POTASSIUM 4.2 mmol/l (3.5-5.1); SODIUM 141 mmol/l (137-146)
--- NOTE | 2017-12-01 07:05 | NUR ---
BEDSIDE REPORT RECIVED BY SALVATORE. PT IS REQUESTING PAIN MEDICATION AND WILL BE CHECKING WHAT DUE. PT DENIES ANY OTHER NEEDS AT THIS TIME. CALL LIGHT IN REACH.
--- NOTE | 2017-12-01 07:30 | NUR ---
MEDICATED PT WITH LORTAB FOR PAIN SEE EMAR. ASSESSMENT DONE RESPS EVEN AND UNLABORED. NS 100ML/HR INFUSING WELL. SAFETY PRECAUTIONS REINFORCED AND CALL LIGHT IN REACH.
[2017-12-01 07:32] VITALS: BP 106/76
--- NOTE | 2017-12-01 11:34 | NUR ---
MEDICATED PT WITH LORTAB FOR ABDOMEN PAIN SEE EMAR. PT DENIES ANY OTHER NEEDS AT THIS TIME. FAMILY IN ROOM. CALL LIGHT IN REACH.
[2017-12-01] MEDS ORDERED: LORTAB 5/3255 MG PO (12:46)
[2017-12-01] MEDS ORDERED: ZOFRAN ODT4 MG PO (12:46)
[2017-12-01] MEDS ORDERED: PROTONIX40 M2 PO (12:46)
[2017-12-01] MEDS ORDERED: CARAFATE1 GM PO (12:46)
[2017-12-01] MEDS ORDERED: [UNRECOGNIZED DRUG - CODE] PO (12:46)
[2017-12-01] MEDS ORDERED: ALPRAZOLAM1 MG PO (12:46)
--- NOTE | 2017-12-01 15:39 | NUR ---
Discharge instructions given. Patient verbalizes understanding of same. Discharged in stable condition via Wheelchair to Home with volunteer. All belongings sent with pt.
== END 2017-12-01 15:40 | disposition home or self-care (01) | DRG 440 ==
LOC: ED 12:33 → ED-I 13:13 → ED 13:13 → ED-I 14:27 → ED 15:47 → MS2 15:48
PROVIDERS: Family Medicine; Nurse Practitioner Family; ADMIT Internal Medicine; ATTEND Internal Medicine
DX: K85.90 Acute pancreatitis without necrosis or infection, unspecified (principal); K86.0 Alcohol-induced chronic pancreatitis; F10.21 Alcohol dependence, in remission; F12.90 Cannabis use, unspecified, uncomplicated; F32.9 Major depressive disorder, single episode, unspecified; F41.9 Anxiety disorder, unspecified; F17.210 Nicotine dependence, cigarettes, uncomplicated; Z87.11 Personal history of peptic ulcer disease; Z91.14 Patient's other noncompliance with medication regimen
CPT/HCPCS: G0378; Q9967; S0164

== ENCOUNTER 2017-12-06 09:48 | Emergency (ER) | payer SELFPAY ==
[~2017-12-06] VITALS: Ht 154.9 cm; Wt 70.0 kg
[~2017-12-06 09:48] MED LIST changes: +LORTAB 5/3255 MG PO; +[UNRECOGNIZED DRUG - CODE] PO
[2017-12-06 10:28] LABS: HEMATOCRIT 43.9 % (37.0-47.0); HEMOGLOBIN 14.5 g/dl (12.0-16.0); IMMATURE GRANULOCYTES 0.3 % (0.0-1.0); MEAN CELL VOLUME 92.8 fL CALC (80.0-100.0); MEAN CORPUSCULAR HGB 30.7 pG CALC (26.0-32.0); NEUT# 3.85 thou/uL (2.00-7.15); RED BLOOD COUNT 4.73 mill/uL (4.20-5.60); RED CELL DISTRI WIDTH 13.5 % (11.5-15.5)
[2017-12-06 10:43] LABS: ALBUMIN 4.5 g/dL (3.2-5.0); ALKALINE PHOSPHATASE 65 u/l (38-126); ANION GAP 18 (6-22 (CALC)); BILIRUBIN, TOTAL 0.4 mg/dL (0.0-1.4); BUN 15 mg/dL (7-17); BUN/CREATININE RATIO 21 (12-20 (CALC)); CARBON DIOXIDE 23 mmol/l (22-30); CHLORIDE 104 mmol/l (95-108); CREATININE 0.7 mg/dL (0.5-1.0); ETHYL ALCOHOL 0 mg/dl (0-30); GFR > 60 ML/MIN (>=60 (CALC)); GFR FOR AFR.AMER. > 60 ML/MIN (>=60 (CALC)); LIPASE 238 u/l (23-300); POTASSIUM 4.7 mmol/l (3.5-5.1); SGOT/AST 19 u/l (14-36); SGPT/ALT 29 u/l (9-52); SODIUM 139 mmol/l (137-146); TOTAL PROTEIN 7.8 g/dL (6.3-8.2)
[2017-12-06 11:12] LABS: URINE BILIRUBIN - DIPSTICK NEGATIVE (NEGATIVE); URINE BLOOD DIPSTICK NEGATIVE (NEGATIVE); URINE CLARITY CLEAR; URINE COLOR YELLOW; URINE GLUCOSE - DIPSTICK NEGATIVE (NEGATIVE); URINE KETONE NEGATIVE (NEGATIVE); URINE LEUK ESTERASE NEGATIVE (NEGATIVE); URINE NITRITE - DIPSTICK NEGATIVE (Negative); URINE PH 8.5 (4.5-8.0); URINE PROTEIN - DIPSTICK NEGATIVE (NEG-TRACE); URINE UROBILINOGEN - DIPSTICK 0.2 E.U./dL (0.2)
[2017-12-06 11:15] LABS: COCAINE NEGATIVE (NEGATIVE); TETRAHYDROCANNABIONOL POSITIVE (NEGATIVE)
[2017-12-06 11:16] LABS: BARBITURATES NEGATIVE (NEGATIVE); METHADONE NEGATIVE (NEGATIVE); OXCYCODONE NEGATIVE (NEGATIVE); TRICYLIC ANTIDEPRESSANTS NEGATIVE (NEGATIVE)
[2017-12-06] MEDS ORDERED: PHENERGAN25 M1 PR (11:26)
[2017-12-06 11:35] VITALS: BP 117/81
== END 2017-12-06 11:35 | disposition home or self-care (01) | DRG 92 ==
LOC: ED 09:48
PROVIDERS: Emergency Medicine
DX: G89.29 Other chronic pain (principal); R10.13 Epigastric pain; R11.10 Vomiting, unspecified; K86.1 Other chronic pancreatitis; Z93.1 Gastrostomy status; F17.210 Nicotine dependence, cigarettes, uncomplicated
CPT/HCPCS: S0164

== ENCOUNTER 2017-12-14 05:09 | Observation (INO) | payer SELFPAY ==
[~2017-12-14] VITALS: Ht 154.9 cm; Wt 75.8 kg
[~2017-12-14 05:09] MED LIST changes: +PHENERGAN25 M1 PR
--- NOTE | 2017-12-14 05:22 | NUR ---
PATIENT AMBULATORY TO ROOM 8. UNDRESSED INTO A GOWN. AWAITING MD JIM.
[2017-12-14 06:32] LABS: URINE BILIRUBIN - DIPSTICK NEGATIVE (NEGATIVE); URINE BLOOD DIPSTICK NEGATIVE (NEGATIVE); URINE COLOR YELLOW; URINE GLUCOSE - DIPSTICK NEGATIVE (NEGATIVE); URINE KETONE NEGATIVE (NEGATIVE); URINE LEUK ESTERASE NEGATIVE (NEGATIVE); URINE NITRITE - DIPSTICK NEGATIVE (Negative); URINE PROTEIN - DIPSTICK NEGATIVE (NEG-TRACE); URINE UROBILINOGEN - DIPSTICK 0.2 E.U./dL (0.2)
[2017-12-14 06:33] LABS: IMMATURE GRANULOCYTES 0.1 % (0.0-1.0); MEAN CELL VOLUME 93.8 fL CALC (80.0-100.0); MEAN CORPUSCULAR HGB 31.3 pG CALC (26.0-32.0); MEAN CORPUSCULAR HGB CONC 33.3 g/L CALC (32.0-36.0); NEUT# 3.88 thou/uL (2.00-7.15); RED BLOOD COUNT 4.16 mill/uL (4.20-5.60); RED CELL DISTRI WIDTH 14.1 % (11.5-15.5)
[2017-12-14 06:37] LABS: URINE CLARITY SL CLOUDY
[2017-12-14 06:40] LABS: COCAINE NEGATIVE (NEGATIVE); METHADONE NEGATIVE (NEGATIVE); TETRAHYDROCANNABIONOL POSITIVE (NEGATIVE)
[2017-12-14 06:41] LABS: BARBITURATES NEGATIVE (NEGATIVE); OXCYCODONE NEGATIVE (NEGATIVE); TRICYLIC ANTIDEPRESSANTS NEGATIVE (NEGATIVE)
[2017-12-14 06:45] LABS: ALBUMIN 3.9 g/dL (3.2-5.0); ALKALINE PHOSPHATASE 62 u/l (38-126); AMYLASE 267 u/l (30-110); ANION GAP 16 (6-22 (CALC)); BILIRUBIN, TOTAL 0.3 mg/dL (0.0-1.4); BUN 15 mg/dL (7-17); BUN/CREATININE RATIO 22 (12-20 (CALC)); CARBON DIOXIDE 22 mmol/l (22-30); CHLORIDE 108 mmol/l (95-108); CREATININE 0.7 mg/dL (0.5-1.0); GFR > 60 ML/MIN (>=60 (CALC)); GFR FOR AFR.AMER. > 60 ML/MIN (>=60 (CALC)); LIPASE 1557 u/l (23-300); SGOT/AST 19 u/l (14-36); SGPT/ALT 28 u/l (9-52); SODIUM 142 mmol/l (137-146); TOTAL PROTEIN 7.1 g/dL (6.3-8.2)
--- NOTE | 2017-12-14 06:50 | NUR ---
CARAFATE WAS GIVEN PO AT 0645. BAR CODE WAS DAMAGED AND WOULD NOT SCAN.
--- NOTE | 2017-12-14 06:52 | NUR ---
REPORT RECEIVED FROM DIEGO MURDOCK.
--- NOTE | 2017-12-14 07:00 | NUR ---
PATIENT RESTING ON STRETCHER, RESPIRATIONS EVEN AND UNLABORED. BOWEL SOUNDS ACTIVE TENDERNESS NOTED TO RUQ WHEN PALPATED, RATES PAIN 7/10 AT THIS TIME. CALL LIGHT GIVEN, INFORMED TO CALL FOR ASSISTANCE. VERBAL UNDERSTANDING. WILL CONTINUE TO MONITOR.
--- NOTE | 2017-12-14 07:37 | NUR ---
ROD RETURNS FROM RADIOLOGY DEPARTMENT REQUESTING PAIN MEDICATION FOR PAIN LEVEL 8/10 AND NAUSEA. INFORMED. AWAITING NEW ORDERS.
--- NOTE | 2017-12-14 07:59 | NUR ---
PATIENT MEDICATED WITH 4 MG OF ZOFRAN, PATIENT DEVELOPED URTICARIA. MD INFORMED AND AT BEDSIDE TO DISCUSS RESULTS AND PLAN OF CARE.
--- NOTE | 2017-12-14 08:26 | NUR ---
ATTEMPT MADE TO CALL REPORT, SPOKE TO OSEI. STATES NURSE WILL CALL BACK FOR REPORT.
--- NOTE | 2017-12-14 08:41 | NUR ---
PATIENT REPORTS PAIN LEVEL 7/10 AT THIS TIME. AMBULATES TO BATHROOM WITH STEADY GAIT.
--- NOTE | 2017-12-14 09:00 | NUR ---
REPORT GIVEN TO DIEGO MCCRACKEN.
--- NOTE | 2017-12-14 09:10 | NUR ---
ROD TRANSPORTED TO [facility] VIA WHEELCHAIR. RREPORT GIVEN TO DIEGO MCCRACKEN. CARE RELINQUISHED
--- NOTE | 2017-12-14 09:13 | NUR ---
PT CAME FROM ER VIA WHEELCHAIR BY [place]. SAFETY PRECAUTIONS REINFORCED AND CALL LIGHT IN REACH.
[2017-12-14 09:28] VITALS: BP 117/62
--- NOTE | 2017-12-14 12:32 | NUR ---
ASSESSMENT DONE. RESPS EVEN AND UNLABORED. #20 LH THAT APPEARS HEALTHY. POC DISCUSS WITH PT. PT DENIES NEEDS AT THIS TIME. CALL LIGHT IN REACH.
[2017-12-14 16:00] VITALS: BP 99/52
--- NOTE | 2017-12-14 16:00 | NUR ---
PT IS RESTING IN BED WITH NO S/S OF DISTRESS NOTED. PT DENIES NEEDS AT THIS TIME. CALL LIGHT IN REACH.
[2017-12-14 18:40] VITALS: BP 92/70
--- NOTE | 2017-12-14 20:06 | NUR ---
PT DOUBLED OVER IN BED C/O ABDOMINAL PAIN 04/19, AND NAUSEA. PHENERGAN IV PROVIDED PER SEP, TOO EARLY FOR LORTAB, PT AWARE. DR. GIRALDO NOTIFIED OF PT'S PAIN, NEW ORDERS RECEIVED. NS INFUSING TO RH AT 50CC/HR. CALL LIGHT IN REACH, WILL CONTINUE TO MONITOR. B/P 92/70, HR 63, PT STATES HER B/P ALWAYS RUNS LOW.
--- NOTE | 2017-12-14 21:27 | NUR ---
DILAUDID 0.5MG IV ADMINISTERED PER MAR FOR C/O ABDOMINAL PAIN 03/20. PO FLUIDS AND CALL LIGHT IN REACH, WILL CONTINUE TO MONITOR.
--- NOTE | 2017-12-15 01:37 | NUR ---
C/O PAIN TO ABDOMEN RADIATING TO BACK 04/19, LORTAB PROVIDED.
--- NOTE | 2017-12-15 02:15 | NUR ---
PT DENIES ANY PAIN RELIEF FROM LORTAB, C/O PAIN 04/19 DILAUDID IV ADMINISTERED PER SEP, ADMITS TO VOMITING IN BATHROOM, PHENERGAN IV ALSO ADMINISTERED PER SEP.
--- NOTE | 2017-12-15 04:10 | NUR ---
MORNING BLOOD WORK DRAWN BY RAIL SPECIALIST, TOLERATED WELL.
[2017-12-15 05:02] VITALS: BP 121/61
[2017-12-15 05:27] LABS: HEMOGLOBIN 12.1 g/dl (12.0-16.0); IMMATURE GRANULOCYTES 0.3 % (0.0-1.0); MEAN CELL VOLUME 96.1 fL CALC (80.0-100.0); MEAN CORPUSCULAR HGB 31.4 pG CALC (26.0-32.0); MEAN CORPUSCULAR HGB CONC 32.7 g/L CALC (32.0-36.0); NEUT# 5.35 thou/uL (2.00-7.15); RED BLOOD COUNT 3.85 mill/uL (4.20-5.60); RED CELL DISTRI WIDTH 14.1 % (11.5-15.5)
[2017-12-15 05:47] LABS: ANION GAP 16 (6-22 (CALC)); BUN 9 mg/dL (7-17); BUN/CREATININE RATIO 14 (12-20 (CALC)); CARBON DIOXIDE 23 mmol/l (22-30); CHLORIDE 108 mmol/l (95-108); CREATININE 0.7 mg/dL (0.5-1.0); GFR > 60 ML/MIN (>=60 (CALC)); GFR FOR AFR.AMER. > 60 ML/MIN (>=60 (CALC)); LIPASE 89 u/l (23-300); MAGNESIUM 1.9 mg/dL (1.6-2.3); POTASSIUM 4.4 mmol/l (3.5-5.1); SODIUM 143 mmol/l (137-146)
--- NOTE | 2017-12-15 07:09 | NUR ---
REPORT RECEIVED BY SALVATORE. PT STATED THAT SHE HAS PAIN IN HER ABDOMEN AND BACK . SALVATORE MEDICATED PT WITH DILAUDID SEE EMAR. PT DENIES ANY OTHER NEEDS AT THIS TIME. CALL LIGHT IN REACH.
[2017-12-15 08:00] VITALS: BP 98/55
--- NOTE | 2017-12-15 08:00 | NUR ---
ASSESSMENT DONE. RESPS EVEN AND UNLABORED. PT STATED PAIN IS 6/10 IN PAIN. TOLD WILL CHECK WHAT MEDICATION PAIN IS DUE. PT VERBALZIED UNDERSTANDING. PT DENIES ANY OTHER NEEDS AT THIS TIME. SAFETY PRECAUTIONS REINFORCED AND CALL LIGHT IN REACH.
--- NOTE | 2017-12-15 12:00 | NUR ---
PROVIDED A WARM BLAKNET FOR PT BACK DUE TO PAIN. NO S/S OF DISTRESS NOTED. PT IS VISITING IN ROOM WITH FRIEND. CALL LIGHT IN REACH.
[2017-12-15] MEDS ORDERED: LORTAB 5/3255 MG PO (12:22)
[2017-12-15] MEDS ORDERED: ALPRAZOLAM1 MG PO (12:22)
[2017-12-15] MEDS ORDERED: [UNRECOGNIZED DRUG - CODE] PO (12:22)
--- NOTE | 2017-12-15 13:10 | NUR ---
Discharge instructions given. Patient verbalizes understanding of same. Discharged in stable condition via WALKING to Home with family. All belongings sent with pt.
== END 2017-12-15 13:10 | disposition home or self-care (01) | DRG 440 ==
LOC: ED 05:09 → ED-I 07:42 → ED 07:51 → MS2 07:52
PROVIDERS: Emergency Medicine; Nurse Practitioner Family; ADMIT Internal Medicine; ATTEND Internal Medicine
DX: K85.90 Acute pancreatitis without necrosis or infection, unspecified (principal); F12.90 Cannabis use, unspecified, uncomplicated; K86.0 Alcohol-induced chronic pancreatitis; F17.210 Nicotine dependence, cigarettes, uncomplicated; K27.9 Peptic ulcer, site unspecified, unspecified as acute or chronic, without hemorrhage or perforation; R91.1 Solitary pulmonary nodule; F41.9 Anxiety disorder, unspecified; F32.9 Major depressive disorder, single episode, unspecified; Z91.14 Patient's other noncompliance with medication regimen
CPT/HCPCS: G0378; S0164

== ENCOUNTER 2017-12-23 04:54 | Emergency (ER) | payer SELFPAY ==
[~2017-12-23] VITALS: Ht 154.9 cm; Wt 68.0 kg
[2017-12-23 05:26] LABS: HEMATOCRIT 41.8 % (37.0-47.0); IMMATURE GRANULOCYTES 0.2 % (0.0-1.0); MEAN CORPUSCULAR HGB 31.8 pG CALC (26.0-32.0); MEAN CORPUSCULAR HGB CONC 33.5 g/L CALC (32.0-36.0); NEUT# 3.38 thou/uL (2.00-7.15); RED BLOOD COUNT 4.4 mill/uL (4.20-5.60); RED CELL DISTRI WIDTH 13.9 % (11.5-15.5)
[2017-12-23 05:48] LABS: ALKALINE PHOSPHATASE 60 u/l (38-126); AMYLASE 133 u/l (30-110); ANION GAP 10 (6-22 (CALC)); BILIRUBIN, TOTAL 0.2 mg/dL (0.0-1.4); BUN 18 mg/dL (7-17); BUN/CREATININE RATIO 24 (12-20 (CALC)); CARBON DIOXIDE 26 mmol/l (22-30); CHLORIDE 106 mmol/l (95-108); CREATININE 0.8 mg/dL (0.5-1.0); GFR > 60 ML/MIN (>=60 (CALC)); GFR FOR AFR.AMER. > 60 ML/MIN (>=60 (CALC)); LIPASE 334 u/l (23-300); POTASSIUM 4.2 mmol/l (3.5-5.1); SGOT/AST 23 u/l (14-36); SGPT/ALT 25 u/l (9-52); SODIUM 137 mmol/l (137-146); TOTAL PROTEIN 7.2 g/dL (6.3-8.2)
[2017-12-23] MEDS ORDERED: REGLAN10 MG PO (06:28)
[2017-12-23] MEDS ORDERED: LORTAB 1010 MG PO (06:28)
[2017-12-23 06:29] VITALS: BP 119/70
== END 2017-12-23 06:57 | disposition home or self-care (01) | DRG 392 ==
LOC: ED 04:54
PROVIDERS: Emergency Medicine
DX: R10.13 Epigastric pain (principal); R11.2 Nausea with vomiting, unspecified

== ENCOUNTER 2018-02-03 15:47 | Inpatient (IN) | payer SELFPAY ==
[~2018-02-03] VITALS: Ht 154.9 cm; Wt 74.4 kg
[2018-02-03 16:52] LABS: HEMATOCRIT 47.1 % (37.0-47.0); IMMATURE GRANULOCYTES 0.4 % (0.0-5.0); MEAN CELL VOLUME 93.3 fL CALC (80.0-100.0); MEAN CORPUSCULAR HGB 31.7 pG CALC (26.0-32.0); NEUT# 2.92 thou/uL (2.00-7.15); RED BLOOD COUNT 5.05 mill/uL (4.20-5.60); RED CELL DISTRI WIDTH 12.6 % (11.5-15.5)
[2018-02-03 17:14] LABS: ALBUMIN 4.5 g/dL (3.2-5.0); ALKALINE PHOSPHATASE 74 u/l (38-126); ANION GAP 16 (6-22 (CALC)); BILIRUBIN, TOTAL 0.3 mg/dL (0.0-1.4); BUN 18 mg/dL (7-17); BUN/CREATININE RATIO 25 (12-20 (CALC)); CARBON DIOXIDE 23 mmol/l (22-30); CHLORIDE 105 mmol/l (95-108); CREATININE 0.7 mg/dL (0.5-1.0); GFR > 60 ML/MIN (>=60 (CALC)); GFR FOR AFR.AMER. > 60 ML/MIN (>=60 (CALC)); LIPASE 1563 u/l (23-300); POTASSIUM 4.7 mmol/l (3.5-5.1); SGOT/AST 19 u/l (14-36); SGPT/ALT 27 u/l (9-52); SODIUM 139 mmol/l (137-146); TOTAL PROTEIN 7.8 g/dL (6.3-8.2)
[2018-02-03] MEDS ORDERED: CARAFATE1 GM PO (20:42)
[2018-02-03 20:55] VITALS: BP 93/63
[2018-02-03 23:35] LABS: URINE BILIRUBIN - DIPSTICK NEGATIVE (NEGATIVE); URINE BLOOD DIPSTICK TRACE-LYSED (NEGATIVE); URINE COLOR YELLOW; URINE GLUCOSE - DIPSTICK NEGATIVE (NEGATIVE); URINE KETONE NEGATIVE (NEGATIVE); URINE LEUK ESTERASE NEGATIVE (NEGATIVE); URINE NITRITE - DIPSTICK NEGATIVE (Negative); URINE PH 5.5 (4.5-8.0); URINE PROTEIN - DIPSTICK NEGATIVE (NEG-TRACE); URINE UROBILINOGEN - DIPSTICK 0.2 E.U./dL (0.2)
[2018-02-03 23:36] LABS: URINE CLARITY CLEAR
[2018-02-04 05:13] VITALS: BP 101/52
[2018-02-04 08:48] VITALS: BP 90/63
[2018-02-04] MEDS ORDERED: PERCOCET 10/31 COMBO PO (12:25)
== END 2018-02-04 13:15 | disposition home or self-care (01) | DRG 440 ==
LOC: ED 15:47 → ED-I 19:43 → ED 19:55 → MS2 19:56
PROVIDERS: Family Medicine; ADMIT General Practice; ATTEND General Practice
DX: K85.90 Acute pancreatitis without necrosis or infection, unspecified (principal); K86.1 Other chronic pancreatitis; E86.0 Dehydration; F17.210 Nicotine dependence, cigarettes, uncomplicated; F32.9 Major depressive disorder, single episode, unspecified; F41.9 Anxiety disorder, unspecified; Z87.11 Personal history of peptic ulcer disease

== ENCOUNTER 2018-03-02 11:14 | Emergency (ER) | payer SELFPAY ==
[~2018-03-02] VITALS: Ht 154.9 cm; Wt 68.2 kg
[~2018-03-02 11:14] MED LIST changes: +PERCOCET 10/31 COMBO PO
[2018-03-02 11:56] LABS: HEMATOCRIT 44.7 % (37.0-47.0); HEMOGLOBIN 15.1 g/dl (12.0-16.0); IMMATURE GRANULOCYTES 0.1 % (0.0-5.0); MEAN CELL VOLUME 92.7 fL CALC (80.0-100.0); MEAN CORPUSCULAR HGB 31.3 pG CALC (26.0-32.0); MEAN CORPUSCULAR HGB CONC 33.8 g/L CALC (32.0-36.0); NEUT# 2.49 thou/uL (2.00-7.15); RED BLOOD COUNT 4.82 mill/uL (4.20-5.60); RED CELL DISTRI WIDTH 12.6 % (11.5-15.5)
[2018-03-02 12:23] LABS: ALBUMIN 4.6 g/dL (3.2-5.0); ALKALINE PHOSPHATASE 66 u/l (38-126); ANION GAP 19 (6-22 (CALC)); BILIRUBIN, TOTAL 0.5 mg/dL (0.0-1.4); BUN 22 mg/dL (7-17); BUN/CREATININE RATIO 32 (12-20 (CALC)); CARBON DIOXIDE 23 mmol/l (22-30); CHLORIDE 104 mmol/l (95-108); CREATININE 0.7 mg/dL (0.5-1.0); GFR > 60 ML/MIN (>=60 (CALC)); GFR FOR AFR.AMER. > 60 ML/MIN (>=60 (CALC)); LIPASE 1056 u/l (23-300); POTASSIUM 4.6 mmol/l (3.5-5.1); SGOT/AST 29 u/l (14-36); SGPT/ALT 32 u/l (9-52); SODIUM 141 mmol/l (137-146)
[2018-03-02 19:37] LABS: URINE BILIRUBIN - DIPSTICK NEGATIVE (NEGATIVE); URINE BLOOD DIPSTICK NEGATIVE (NEGATIVE); URINE COLOR YELLOW; URINE GLUCOSE - DIPSTICK NEGATIVE (NEGATIVE); URINE KETONE NEGATIVE (NEGATIVE); URINE LEUK ESTERASE NEGATIVE (NEGATIVE); URINE NITRITE - DIPSTICK NEGATIVE (Negative); URINE PROTEIN - DIPSTICK NEGATIVE (NEG-TRACE); URINE SPECIFIC GRAVITY >=1.030; URINE UROBILINOGEN - DIPSTICK 0.2 E.U./dL (0.2)
[2018-03-02 19:38] LABS: URINE CLARITY CLEAR
[2018-03-02 19:50] VITALS: BP 117/65
== END 2018-03-02 19:50 | disposition still patient (30) | DRG 440 ==
LOC: ED 11:14
PROVIDERS: Family Medicine
DX: K85.90 Acute pancreatitis without necrosis or infection, unspecified (principal); F17.210 Nicotine dependence, cigarettes, uncomplicated

== ENCOUNTER 2018-03-17 09:46 | Emergency (ER) | payer SELFPAY | END 2018-03-17 09:57 | disposition left against medical advice (07) | DRG 951 | LOC: ED 09:46 → LWOBS 09:56 | DX: Z91.19 Patient's noncompliance with other medical treatment and regimen (principal) ==

== ENCOUNTER 2018-05-14 19:33 | Emergency (ER) | payer SELFPAY ==
[~2018-05-14] VITALS: Ht 154.9 cm; Wt 65.0 kg
[2018-05-14] MEDS ORDERED: AMOXICILLIN500 MG PO (20:22)
[2018-05-14 20:30] VITALS: BP 144/70
== END 2018-05-14 20:30 | disposition home or self-care (01) | DRG 159 ==
LOC: ED 19:33
DX: K02.9 Dental caries, unspecified (principal); K08.89 Other specified disorders of teeth and supporting structures; F17.290 Nicotine dependence, other tobacco product, uncomplicated

== ENCOUNTER 2018-10-29 22:27 | Inpatient (IN) | payer SELFPAY ==
[~2018-10-29] VITALS: Ht 154.9 cm; Wt 71.0 kg
--- NOTE | 2018-10-29 22:34 | NUR ---
AMBULATED TO ROOM
[2018-10-29 23:18] LABS: IMMATURE GRANULOCYTES 0.3 % (0.0-5.0); MEAN CELL VOLUME 93.6 fL CALC (80.0-100.0); MEAN CORPUSCULAR HGB 31.4 pG CALC (26.0-32.0); MEAN CORPUSCULAR HGB CONC 33.5 g/L CALC (32.0-36.0); NEUT# 6.59 thou/uL (2.00-7.15); RED CELL DISTRI WIDTH 12.5 % (11.5-15.5)
[2018-10-29 23:24] LABS: COCAINE NEGATIVE (NEGATIVE); METHADONE NEGATIVE (NEGATIVE); TETRAHYDROCANNABIONOL POSITIVE (NEGATIVE)
[2018-10-29 23:25] LABS: BARBITURATES NEGATIVE (NEGATIVE); OXCYCODONE NEGATIVE (NEGATIVE); TRICYLIC ANTIDEPRESSANTS NEGATIVE (NEGATIVE)
--- NOTE | 2018-10-29 23:26 | NUR ---
IVF, IV PAIN MED AND IM ANTIEMETIC GIVEN PER MD ORDER.
[2018-10-29 23:28] LABS: HEMATOCRIT 46.8 % (37.0-47.0); HEMOGLOBIN 15.7 g/dl (12.0-16.0)
[2018-10-30 00:02] LABS: ALKALINE PHOSPHATASE 67 u/l (38-126); AMYLASE 205 u/l (30-110); ANION GAP 13 (6-22 (CALC)); BILIRUBIN, TOTAL 0.2 mg/dL (0.0-1.4); BUN 17 mg/dL (7-17); BUN/CREATININE RATIO 23 (12-20 (CALC)); CARBON DIOXIDE 24 mmol/l (22-30); CHLORIDE 106 mmol/l (95-108); CREATININE 0.7 mg/dL (0.5-1.0); GFR > 60 ML/MIN (>=60 (CALC)); GFR FOR AFR.AMER. > 60 ML/MIN (>=60 (CALC)); LIPASE 1100 u/l (23-300); POTASSIUM 4.1 mmol/l (3.5-5.1); SGOT/AST 16 u/l (14-36); SODIUM 138 mmol/l (137-146); TOTAL PROTEIN 6.5 g/dL (6.3-8.2)
--- NOTE | 2018-10-30 00:44 | NUR ---
RETURNED FROM CT
--- NOTE | 2018-10-30 02:07 | NUR ---
PT. REQUESTING MORE PAIN MED AT THIS TIME, AWARE.
--- NOTE | 2018-10-30 02:49 | NUR ---
Admission Note Report Given to: REYMUNDO CORTEZ Transported by: Wheelchair X Stretcher Transported with: X Nurse Transporter X Patent IV O2 Engraver [employer]
--- NOTE | 2018-10-30 02:50 | NUR ---
PT. STATES HER ABD. PAIN IS NOW DECREASED TO A 6 ON A SCALE OF 1-10.
--- NOTE | 2018-10-30 03:00 | NUR ---
PT. TAKEN TO [facility] FLOOR VIA STRETCHER.
--- NOTE | 2018-10-30 03:10 | NUR ---
RECEIVED REPORT FROM ER NURSE SARAI SQUIRES PANCREATITIS, HAS A G22 RT HAND SALINE LOCK PATENT FLUSHES WELL, LAST BM 10/29, PATIENT SETTLED IN BED, ORIENTED TO PHONE AND CALL LIGHT SYSTEM, REINFORCED ON NPO STATUS.
[2018-10-30 03:15] VITALS: BP 117/67
[2018-10-30 05:30] LABS: HEMATOCRIT 41.9 % (37.0-47.0); IMMATURE GRANULOCYTES 0.3 % (0.0-5.0); MEAN CELL VOLUME 95.9 fL CALC (80.0-100.0); MEAN CORPUSCULAR HGB 30.9 pG CALC (26.0-32.0); MEAN CORPUSCULAR HGB CONC 32.2 g/L CALC (32.0-36.0); NEUT# 5.55 thou/uL (2.00-7.15); RED BLOOD COUNT 4.37 mill/uL (4.20-5.60); RED CELL DISTRI WIDTH 12.5 % (11.5-15.5)
[2018-10-30 05:36] LABS: HEMOGLOBIN 13.5 g/dl (12.0-16.0)
[2018-10-30 05:50] LABS: ALBUMIN 3.9 g/dL (3.2-5.0); ALKALINE PHOSPHATASE 74 u/l (38-126); ANION GAP 12 (6-22 (CALC)); BILIRUBIN, TOTAL 0.3 mg/dL (0.0-1.4); BUN 15 mg/dL (7-17); BUN/CREATININE RATIO 22 (12-20 (CALC)); CARBON DIOXIDE 24 mmol/l (22-30); CHLORIDE 107 mmol/l (95-108); CREATININE 0.7 mg/dL (0.5-1.0); GFR > 60 ML/MIN (>=60 (CALC)); GFR FOR AFR.AMER. > 60 ML/MIN (>=60 (CALC)); POTASSIUM 4.5 mmol/l (3.5-5.1); SGOT/AST 21 u/l (14-36); SODIUM 139 mmol/l (137-146); TOTAL PROTEIN 6.4 g/dL (6.3-8.2)
--- NOTE | 2018-10-30 06:04 | NUR ---
PATIENT APPEARS TO BE RESTING IN BED, NO DISCOMFORTS NOTED AT THIS TIME, REMAINS ON NPO, CALL LIGHT AT REACH.
[2018-10-30 07:50] VITALS: BP 80/57
--- NOTE | 2018-10-30 07:50 | NUR ---
ASSESSMENT IS COMPLTED: IV SITE IS FREE FROM REDNESS OR EDEMA. HR IS REG,PULSES ARE STRONG X4, ABD IS SOFT WITH ACTIVE BS BREATH SOUNDS ARE CLEAR, BILATERALLY. CONTINUE TO OSBERVE AND MONITOR.
--- NOTE | 2018-10-30 12:15 | NUR ---
PT IS RELAXING IN BED C/O PAIN. IV SITE IS FREE FROM REDNESS OR EDEMA. CONTINUE TO OSBERVE AND MONITOR.
--- NOTE | 2018-10-30 13:15 | NUR ---
IN TO VISIT WITH PT. RECEIVED AN ORDER PRIOR TO MEETING ABLE TO GIVE TO HER. CONTINUE TO OBSERVE AND MONITOR.
[2018-10-30 17:05] VITALS: BP 108/48
--- NOTE | 2018-10-30 17:30 | NUR ---
PT HAS BEEN RESTING IN BED WITH NO DISTRESS NOTED. IV SITE IS FREE FROM REDNESS OR EDEMA.
--- NOTE | 2018-10-30 19:00 | NUR ---
RECEIVED REPORT FROM NURSE JOHNSON, PATIENT RESTING IN BED, EYES CLOSED NO DISCOMFORTS NOTED AT THIS TIME, EVEN UNLABORED BREATHING CALL LIGHT AT REACH
[2018-10-30 19:10] VITALS: BP 102/68
--- NOTE | 2018-10-30 21:50 | NUR ---
PATIENT RESTING IN BED, ALERT AND ORIENTED, ABLE TO MAKE NEEDS KNOWN, WITH AND ONGOING IV OF NS @ 125CC/HR INFUSING WELL ON THE RT HAND G22, LAST BM 10/29, C/O ABDOMINAL PAIN WRAPPING THRU THE BACK WILL MEDICATE.
--- NOTE | 2018-10-30 23:22 | NUR ---
PATIENT RESTING IN BED, NO DISCOMFORTS NOTED AT THIS TIME, CALL LIGHT WITHIN REACH.
[2018-10-31 00:04] VITALS: BP 98/32; BP 98/62
--- NOTE | 2018-10-31 04:00 | NUR ---
PATIENT C/O ABDOMINAL PAIN PRN DILAUDID GIVEN, WILL REEVALUATE. CURRENTLY RESTING IN BED EYES CLOSED, CALL LIGHT AT REACH.
[2018-10-31 04:29] VITALS: BP 100/64
[2018-10-31 05:27] LABS: HEMOGLOBIN 13.1 g/dl (12.0-16.0); IMMATURE GRANULOCYTES 0.3 % (0.0-5.0); MEAN CELL VOLUME 97.2 fL CALC (80.0-100.0); NEUT# 2.85 thou/uL (2.00-7.15); RED BLOOD COUNT 4.22 mill/uL (4.20-5.60); RED CELL DISTRI WIDTH 12.5 % (11.5-15.5)
[2018-10-31 05:53] LABS: ALBUMIN 3.3 g/dL (3.2-5.0); ALKALINE PHOSPHATASE 63 u/l (38-126); AMYLASE 65 u/l (30-110); ANION GAP 11 (6-22 (CALC)); BILIRUBIN, TOTAL 0.3 mg/dL (0.0-1.4); BUN 10 mg/dL (7-17); BUN/CREATININE RATIO 16 (12-20 (CALC)); CARBON DIOXIDE 23 mmol/l (22-30); CHLORIDE 108 mmol/l (95-108); CREATININE 0.6 mg/dL (0.5-1.0); GFR > 60 ML/MIN (>=60 (CALC)); GFR FOR AFR.AMER. > 60 ML/MIN (>=60 (CALC)); LIPASE 88 u/l (23-300); POTASSIUM 4.6 mmol/l (3.5-5.1); SGOT/AST 18 u/l (14-36); SODIUM 137 mmol/l (137-146); TOTAL PROTEIN 5.7 g/dL (6.3-8.2)
--- NOTE | 2018-10-31 07:06 | NUR ---
REPORT RECEIVED FROM DIEGO BARBER. PT SITTING ON SIDE OF BED. APPEARS DROWSY. FALL PRECAUTIONS REINFORCED. PT DENIES PAIN. REPORTING OF CONCERNS ENCOURAGED. CALL LIGHT REVIEWED AND IN REACH. PLAN OF CARE DISCUSSED. PT STATES UNDERSTANDING.
[2018-10-31 07:59] VITALS: BP 110/68
--- NOTE | 2018-10-31 08:30 | NUR ---
PT REQUESTING PAIN MEDICATION. PT. REMINDED OF ORDERED PAIN MEDICATION AND ITS SCHEDULE. PT. DROWSY, HARDLY ABLE TO KEEP EYES OPEN FOR CONVERSATION.
--- NOTE | 2018-10-31 13:08 | NUR ---
DR. RAY IN TO SEE PT. PLAN TO ADVANCE DIET AND POSSIBLY DISCHARGE HOME TOMORROW DISCUSSED AND AGREED UPON.
[2018-10-31 14:50] VITALS: BP 95/63
--- NOTE | 2018-10-31 16:14 | NUR ---
PT UP TO SHOWER AT THIS TIME. REPORTS "I FEEL A LITTLE BETTER."
[2018-10-31 20:06] VITALS: BP 97/56
[2018-10-31 22:07] VITALS: BP 109/76
[2018-11-01 02:00] VITALS: BP 105/57
--- NOTE | 2018-11-01 02:16 | NUR ---
PATIENT RESTING IN BED-C/O ABD AND BACK PAIN-8/10 ON PAIN SCALE. IVF PATENT AND INFUSING ORDERED VIA LEFT HAND. SAFETY PRECAUTIONS REINFORCED.CALL LIGHT IN REACH. WILL CONT TO MONITOR.
[2018-11-01 04:46] VITALS: BP 102/68
[2018-11-01 05:31] LABS: HEMATOCRIT 43.1 % (37.0-47.0); HEMOGLOBIN 14.2 g/dl (12.0-16.0); IMMATURE GRANULOCYTES 0.1 % (0.0-5.0); MEAN CELL VOLUME 94.3 fL CALC (80.0-100.0); MEAN CORPUSCULAR HGB 31.1 pG CALC (26.0-32.0); MEAN CORPUSCULAR HGB CONC 32.9 g/L CALC (32.0-36.0); NEUT# 3.34 thou/uL (2.00-7.15); RED BLOOD COUNT 4.57 mill/uL (4.20-5.60); RED CELL DISTRI WIDTH 12.1 % (11.5-15.5)
[2018-11-01 06:00] LABS: ALBUMIN 3.8 g/dL (3.2-5.0); ALKALINE PHOSPHATASE 71 u/l (38-126); AMYLASE 53 u/l (30-110); ANION GAP 13 (6-22 (CALC)); BILIRUBIN, TOTAL 0.3 mg/dL (0.0-1.4); BUN 8 mg/dL (7-17); BUN/CREATININE RATIO 13 (12-20 (CALC)); CARBON DIOXIDE 23 mmol/l (22-30); CHLORIDE 106 mmol/l (95-108); CREATININE 0.6 mg/dL (0.5-1.0); GFR > 60 ML/MIN (>=60 (CALC)); GFR FOR AFR.AMER. > 60 ML/MIN (>=60 (CALC)); LIPASE 57 u/l (23-300); POTASSIUM 4.5 mmol/l (3.5-5.1); SGOT/AST 18 u/l (14-36); SODIUM 138 mmol/l (137-146); TOTAL PROTEIN 6.3 g/dL (6.3-8.2)
--- NOTE | 2018-11-01 07:00 | NUR ---
SHIFT CHANGE REPORT, PT SLEEPING LIGHTLY AND AWAKENED TO VERBAL STIMULI, ORIENTED, C/O UPPER ABD PAIN BUT UNABLE TO ANSWER QUESTION TO RATE PAIN SHE FELL ASLEEP DURING ASSESSMENT. IVF INFUSING, CALL TUCKER IN REACH, WILL CONTINUE TO MONITOR.
[2018-11-01 08:18] VITALS: BP 121/61
--- NOTE | 2018-11-01 12:40 | NUR ---
RESTING IN BED NOW, PAIN CONCERN ADDRESSED.
--- NOTE | 2018-11-01 13:10 | NUR ---
DR RAY ROUNDED, DISCUSSED PLAN OF CARE, GAVE NEW ORDERS TO D/C IVF AND SAID HE WILL D/C IV ANALGESIC.
--- NOTE | 2018-11-01 14:54 | NUR ---
CRYING TEARS AT THIS TIME C/O ABD PAIN @ 04/19, MEDICATED, CRYING STOPPED IMMEDIATELY THEN SHE REQUESTED DRINKS WHICH WAS GIVEN. PT ALSO REPORTED SHE VOMITTED UP MEAL AFTER HAVING REGULAR MEAL STATING SHE DOES NOT TOLERATE MEATS WELL AND SHE THINKS SHE VOMITTED BECAUSE SHE ATE SOME MEAT, WILL CONTINUE TO MONITOR.
--- NOTE | 2018-11-01 16:04 | NUR ---
PT STATED SHE MADE APPOINTMENT WITH "BELLY DOCTOR" FOR TOMORROW AM FURTHERMORE WE ARE ONLY ADDRESSING HER PAIN HERE AND SHE DOES NOT LIKE TOO MUCH PAIN MED SO SHE HAS DECIDED TO HAVE HER DOCTOR ADDRES HER PROBLEMS. DR FLORES (AUPERVISOR) NOTIFIED.
--- NOTE | 2018-11-01 16:10 | NUR ---
Patient decides to leave AMA. Multiple attempts made to ecourage patient to remain here for continued treatment. Explained to patient all risks of leaving against medical advice including . Pt verbalized understanding of all risks. Pt also encouraged to return to [facility] at any time, especially if symptoms continue or become worse. Pt verbalized understanding.
== END 2018-11-01 16:08 | disposition home or self-care (01) | DRG 440 ==
LOC: ED 22:27 → ED-I 10-30 02:32 → ED 10-30 02:55 → MS2 10-30 02:56
PROVIDERS: Emergency Medicine; Internal Medicine Nephrology; ADMIT Internal Medicine; ATTEND Internal Medicine
DX: K85.90 Acute pancreatitis without necrosis or infection, unspecified (principal); K86.1 Other chronic pancreatitis; K21.9 Gastro-esophageal reflux disease without esophagitis; F32.9 Major depressive disorder, single episode, unspecified; F17.200 Nicotine dependence, unspecified, uncomplicated; F41.1 Generalized anxiety disorder; Z87.11 Personal history of peptic ulcer disease
CPT/HCPCS: J2060; S0164

== ENCOUNTER 2018-11-19 19:44 | Emergency (ER) | payer SELFPAY ==
[~2018-11-19] VITALS: Ht 154.9 cm; Wt 65.9 kg
[2018-11-19 20:25] LABS: HEMATOCRIT 41.9 % (37.0-47.0); HEMOGLOBIN 14.2 g/dl (12.0-16.0); IMMATURE GRANULOCYTES 0.4 % (0.0-5.0); MEAN CELL VOLUME 92.7 fL CALC (80.0-100.0); MEAN CORPUSCULAR HGB 31.4 pG CALC (26.0-32.0); MEAN CORPUSCULAR HGB CONC 33.9 g/L CALC (32.0-36.0); NEUT# 6.29 thou/uL (2.00-7.15); RED BLOOD COUNT 4.52 mill/uL (4.20-5.60); RED CELL DISTRI WIDTH 12.4 % (11.5-15.5)
[2018-11-19] MEDS ORDERED: PHENERGAN25 MG/TAB PO (20:44)
[2018-11-19 20:47] LABS: ALKALINE PHOSPHATASE 73 u/l (38-126); AMYLASE 92 u/l (30-110); ANION GAP 12 (6-22 (CALC)); BILIRUBIN, TOTAL 0.2 mg/dL (0.0-1.4); BUN 14 mg/dL (7-17); BUN/CREATININE RATIO 21 (12-20 (CALC)); CARBON DIOXIDE 25 mmol/l (22-30); CHLORIDE 103 mmol/l (95-108); CREATININE 0.7 mg/dL (0.5-1.0); GFR > 60 ML/MIN (>=60 (CALC)); GFR FOR AFR.AMER. > 60 ML/MIN (>=60 (CALC)); LIPASE 228 u/l (23-300); SGOT/AST 10 u/l (14-36); SODIUM 136 mmol/l (137-146); TOTAL PROTEIN 6.7 g/dL (6.3-8.2)
[2018-11-19 20:50] VITALS: BP 107/72
[2018-11-19 21:12] LABS: URINE BILIRUBIN - DIPSTICK NEGATIVE (NEGATIVE); URINE BLOOD DIPSTICK TRACE-INTACT (NEGATIVE); URINE COLOR YELLOW; URINE GLUCOSE - DIPSTICK NEGATIVE (NEGATIVE); URINE KETONE NEGATIVE (NEGATIVE); URINE LEUK ESTERASE NEGATIVE (NEGATIVE); URINE NITRITE - DIPSTICK NEGATIVE (Negative); URINE PROTEIN - DIPSTICK NEGATIVE (NEG-TRACE); URINE SPECIFIC GRAVITY >=1.030; URINE UROBILINOGEN - DIPSTICK 0.2 E.U./dL (0.2)
[2018-11-19 21:21] LABS: COCAINE NEGATIVE (NEGATIVE); TETRAHYDROCANNABIONOL POSITIVE (NEGATIVE)
[2018-11-19 21:22] LABS: BARBITURATES NEGATIVE (NEGATIVE); METHADONE NEGATIVE (NEGATIVE); OXCYCODONE NEGATIVE (NEGATIVE); TRICYLIC ANTIDEPRESSANTS NEGATIVE (NEGATIVE)
== END 2018-11-19 21:20 | disposition left against medical advice (07) | DRG 159 ==
LOC: ED 19:44
PROVIDERS: Family Medicine
DX: K04.7 Periapical abscess without sinus (principal); F19.10 Other psychoactive substance abuse, uncomplicated; Z91.19 Patient's noncompliance with other medical treatment and regimen; F17.200 Nicotine dependence, unspecified, uncomplicated

== ENCOUNTER 2018-12-05 18:12 | Observation (INO) | payer SELFPAY ==
[~2018-12-05] VITALS: Ht 152.4 cm; Wt 69.4 kg
--- NOTE | 2018-12-05 18:31 | NUR ---
PT SENT BACK TO WAITING ROOM, NO ROOMS AVAILABLE IN ER AT THIS TIME. CHARGE NURSE NOTIFIED.
--- NOTE | 2018-12-05 18:41 | NUR ---
PT TO ROOM FOR EXAM
[2018-12-05 19:33] LABS: HEMATOCRIT 48.7 % (37.0-47.0); HEMOGLOBIN 16.4 g/dl (12.0-16.0); IMMATURE GRANULOCYTES 0.1 % (0.0-5.0); MEAN CELL VOLUME 93.3 fL CALC (80.0-100.0); MEAN CORPUSCULAR HGB 31.4 pG CALC (26.0-32.0); MEAN CORPUSCULAR HGB CONC 33.7 g/L CALC (32.0-36.0); NEUT# 3.61 thou/uL (2.00-7.15); RED BLOOD COUNT 5.22 mill/uL (4.20-5.60); RED CELL DISTRI WIDTH 12.9 % (11.5-15.5)
[2018-12-05 19:34] LABS: URINE BILIRUBIN - DIPSTICK NEGATIVE (NEGATIVE); URINE BLOOD DIPSTICK TRACE-INTACT (NEGATIVE); URINE COLOR YELLOW; URINE GLUCOSE - DIPSTICK NEGATIVE (NEGATIVE); URINE KETONE TRACE mg/dL (NEGATIVE); URINE LEUK ESTERASE NEGATIVE (NEGATIVE); URINE NITRITE - DIPSTICK NEGATIVE (Negative); URINE PROTEIN - DIPSTICK TRACE mg/dL (NEG-TRACE); URINE SPECIFIC GRAVITY 1.025; URINE UROBILINOGEN - DIPSTICK 0.2 E.U./dL (0.2)
[2018-12-05 19:38] LABS: BARBITURATES NEGATIVE (NEGATIVE); COCAINE NEGATIVE (NEGATIVE); METHADONE NEGATIVE (NEGATIVE); OXCYCODONE NEGATIVE (NEGATIVE); TETRAHYDROCANNABIONOL POSITIVE (NEGATIVE); TRICYLIC ANTIDEPRESSANTS NEGATIVE (NEGATIVE)
[2018-12-05 19:43] LABS: ALBUMIN 4.6 g/dL (3.2-5.0); ALKALINE PHOSPHATASE 80 u/l (38-126); AMYLASE 223 u/l (30-110); ANION GAP 15 (6-22 (CALC)); BUN 22 mg/dL (7-17); BUN/CREATININE RATIO 25 (12-20 (CALC)); CARBON DIOXIDE 26 mmol/l (22-30); CHLORIDE 102 mmol/l (95-108); CREATININE 0.9 mg/dL (0.5-1.0); GFR > 60 ML/MIN (>=60 (CALC)); GFR FOR AFR.AMER. > 60 ML/MIN (>=60 (CALC)); LIPASE 1079 u/l (23-300); POTASSIUM 4.1 mmol/l (3.5-5.1); SGOT/AST 17 u/l (14-36); SODIUM 139 mmol/l (137-146); TOTAL PROTEIN 7.5 g/dL (6.3-8.2)
[2018-12-05 19:44] LABS: BILIRUBIN, TOTAL 0.4 mg/dL (0.0-1.4)
--- NOTE | 2018-12-05 19:50 | NUR ---
IV PROTONIX GIVEN PER MD ORDER.
--- NOTE | 2018-12-05 19:55 | NUR ---
IVF, STARTED PER MD ORDER.
--- NOTE | 2018-12-05 20:09 | NUR ---
IV REGLAN AND IV PAIN MED GIVEN PER MD ORDER.
--- NOTE | 2018-12-05 20:33 | NUR ---
PT. STATES HER ABD. PAIN HAS NOW DECREASED TO A 4 ON A SCALE OF 1-10.
--- NOTE | 2018-12-05 22:09 | NUR ---
IN ROOM TO DISCUSS CLINICAL FINDINGS WITH PT. VERBALIZED UNDERSTANDING.
--- NOTE | 2018-12-05 22:32 | NUR ---
Admission Note Report Given to: PETER CORTEZ Transported by: Wheelchair X Stretcher Transported with: X Nurse Transporter X Patent IV O2 Director Supplier Quality
--- NOTE | 2018-12-05 22:33 | NUR ---
PT. TAKEN TO [place] FLOOR VIA STRETCHER.
--- NOTE | 2018-12-05 22:39 | NUR ---
PT. TAKEN TO [facility] VIA STRETCHER, NO C/O.
[2018-12-05 22:40] VITALS: BP 119/69
--- NOTE | 2018-12-05 23:53 | NUR ---
PATIENT RESTING IN BED AT THIS TIME. C/O SEVERE ABD PAIN-8/10 ON PAIN SCALE. MEDICATED WITH DILAUDID 0.5MG IVP SCHEDULED VIA LEFT FOREARM SITE. SITE REMAINS HEALTHY AT THIS TIME. CALL LIGHT IN REACH. WILL CONT TO MONITOR.
--- NOTE | 2018-12-06 03:44 | NUR ---
APPEARS SLEEPING AT THIS TIME. IVF PATENT AND INFUSING VIA LEFT FOREARM SITE ORDERED. CALL LIGHT IN REACH. WILL CONT TO MONITOR.
[2018-12-06 04:17] VITALS: BP 99/68
--- NOTE | 2018-12-06 05:19 | NUR ---
PATIENT UP TO THE BR TO VOID-STEADY ON HER FEET AND THEN BACK TO BED. PATIENT MEDICATED WITH XANAX 1MG PO ORDERED FOR ANXIETY. IVF PATENT AND INFUSING AT 125CC/HR. SITE REMAINS HEALTHY. SAFETY PRECAUTIONS REINFORCED. CALL LIGHT IN REACH. WILL CONT TO MONITOR.
[2018-12-06 08:00] VITALS: BP 114/71
--- NOTE | 2018-12-06 08:05 | NUR ---
ASSESSMENT DONE. PT IS A&O X3. RESPS EVEN AND UNLABORED. PT STATED PAIN IN ABD 01/17. TOLD PT PAIN MEDICATION NOT DUE. PT VERBALIZED UNDERSTANDING. IVF INFUSING WELL. P0T DENIES ANY OTHER NEEDS AT THIS TIME. CALL LIGHT IN REACH.
--- NOTE | 2018-12-06 12:50 | NUR ---
PT STATED NOT HAPPY WITH DOCTOR AND WANTS TO LEAVE. PT SIGN AMA PAPER AND LEFT WITH FAMILY MEMBER.
== END 2018-12-06 12:48 | disposition left against medical advice (07) | DRG 440 ==
LOC: ED 18:12 → ED-I 21:55 → ED 22:20 → MS2 22:21
PROVIDERS: Emergency Medicine; ADMIT Internal Medicine; ATTEND Internal Medicine
DX: K85.20 Alcohol induced acute pancreatitis without necrosis or infection (principal); K86.0 Alcohol-induced chronic pancreatitis; F15.10 Other stimulant abuse, uncomplicated; F12.10 Cannabis abuse, uncomplicated; F41.8 Other specified anxiety disorders; F31.9 Bipolar disorder, unspecified; F17.210 Nicotine dependence, cigarettes, uncomplicated; Z72.89 Other problems related to lifestyle; Z87.11 Personal history of peptic ulcer disease
CPT/HCPCS: G0378; Q9967; S0164

== ENCOUNTER 2018-12-29 18:35 | Emergency (ER) | payer SELFPAY ==
[~2018-12-29] VITALS: Ht 152.4 cm; Wt 68.1 kg
[2018-12-29] MEDS ORDERED: KEFLEX500 M1 PO (19:27)
[2018-12-29 19:55] VITALS: BP 127/79
== END 2018-12-29 19:55 | disposition home or self-care (01) | DRG 605 ==
LOC: ED 18:35
PROC: 0HQFXZZ Repair Right Hand Skin, External Approach (ICD-10-PCS; principal; 2018-12-29)
DX: S61.216A Laceration without foreign body of right little finger without damage to nail, initial encounter (principal); F17.200 Nicotine dependence, unspecified, uncomplicated; W26.0XXA Contact with knife, initial encounter; Y93.G1 Activity, food preparation and clean up; Y92.000 Kitchen of unspecified non-institutional (private) residence as the place of occurrence of the external cause

== ENCOUNTER 2019-03-05 07:24 | Emergency (ER) | payer SELFPAY ==
[~2019-03-05] VITALS: Ht 152.4 cm; Wt 70.0 kg
[~2019-03-05 07:24] MED LIST changes: +KEFLEX500 M1 PO
[2019-03-05 08:10] LABS: IMMATURE GRANULOCYTES 0.4 % (0.0-5.0); MEAN CELL VOLUME 93.6 fL CALC (80.0-100.0); MEAN CORPUSCULAR HGB 31.9 pG CALC (26.0-32.0); NEUT# 8.25 thou/uL (2.00-7.15); RED BLOOD COUNT 4.52 mill/uL (4.20-5.60); RED CELL DISTRI WIDTH 12.5 % (11.5-15.5)
[2019-03-05 08:11] LABS: HEMATOCRIT 42.3 % (37.0-47.0); HEMOGLOBIN 14.4 g/dl (12.0-16.0)
[2019-03-05 08:57] LABS: ALBUMIN 4.2 g/dL (3.2-5.0); ALKALINE PHOSPHATASE 71 u/l (38-126); AMYLASE 124 u/l (30-110); ANION GAP 12 (6-22 (CALC)); BILIRUBIN, TOTAL 0.4 mg/dL (0.0-1.4); BUN 13 mg/dL (7-17); BUN/CREATININE RATIO 17 (12-20 (CALC)); CARBON DIOXIDE 21 mmol/l (22-30); CHLORIDE 109 mmol/l (95-108); CREATININE 0.8 mg/dL (0.5-1.0); GFR > 60 ML/MIN (>=60 (CALC)); GFR FOR AFR.AMER. > 60 ML/MIN (>=60 (CALC)); LIPASE 211 u/l (23-300); POTASSIUM 4.3 mmol/l (3.5-5.1); SGOT/AST 18 u/l (14-36); SODIUM 139 mmol/l (137-146); TOTAL PROTEIN 7.4 g/dL (6.3-8.2)
[2019-03-05] MEDS ORDERED: ULTRAM50 M1 PO (09:41)
[2019-03-05] MEDS ORDERED: AMOXICILLIN500 MG PO (09:41)
[2019-03-05 09:49] LABS: URINE BILIRUBIN - DIPSTICK NEGATIVE (NEGATIVE); URINE BLOOD DIPSTICK TRACE-INTACT (NEGATIVE); URINE COLOR YELLOW; URINE GLUCOSE - DIPSTICK NEGATIVE (NEGATIVE); URINE KETONE NEGATIVE (NEGATIVE); URINE LEUK ESTERASE NEGATIVE (NEGATIVE); URINE NITRITE - DIPSTICK NEGATIVE (Negative); URINE PROTEIN - DIPSTICK NEGATIVE (NEG-TRACE); URINE SPECIFIC GRAVITY <=1.005; URINE UROBILINOGEN - DIPSTICK 0.2 E.U./dL (0.2)
[2019-03-05 10:03] LABS: BARBITURATES NEGATIVE (NEGATIVE); COCAINE NEGATIVE (NEGATIVE); METHADONE NEGATIVE (NEGATIVE); OXCYCODONE NEGATIVE (NEGATIVE); TETRAHYDROCANNABIONOL POSITIVE (NEGATIVE); TRICYLIC ANTIDEPRESSANTS NEGATIVE (NEGATIVE)
[2019-03-05 10:25] VITALS: BP 122/76
== END 2019-03-05 10:25 | disposition home or self-care (01) | DRG 158 ==
LOC: ED 07:24
PROVIDERS: Emergency Medicine
DX: K04.7 Periapical abscess without sinus (principal); M84.68XA Pathological fracture in other disease, other site, initial encounter for fracture; K02.9 Dental caries, unspecified; F17.200 Nicotine dependence, unspecified, uncomplicated
CPT/HCPCS: Q9967

== ENCOUNTER 2019-04-30 09:01 | Observation (INO) | payer SELFPAY ==
[~2019-04-30] VITALS: Ht 152.4 cm; Wt 75.2 kg
--- NOTE | 2019-04-30 09:40 | NUR ---
PT TO ROOM WITH A STEADY GAIT.
[2019-04-30] MEDS ORDERED: ABILIFY10 MG PO (09:42)
--- NOTE | 2019-04-30 09:50 | NUR ---
PT PRESENTS IN POSITION STATING ABDOMINAL PAIN OF 10/10 AND THAT "I KNOW IT IS MY PANCRIATITIS". PT STATES HAVING THE PAIN FOR THREE DAYS. N/V MENTIONED AND DIARRHEA.
--- NOTE | 2019-04-30 10:14 | NUR ---
BEFORE ADMINISTERING MEDICATION PT CONFIRMED HAVING A RIDE SET UP. MRS. HESTER WAS TO PICK HER UP AFTERWARDS. PHENERGAN GIVIN IN RIGHT ARM. PT TOLERATED WELL BP 130/72 HR 92
[2019-04-30 10:34] LABS: URINE BILIRUBIN - DIPSTICK NEGATIVE (NEGATIVE); URINE BLOOD DIPSTICK TRACE-LYSED (NEGATIVE); URINE GLUCOSE - DIPSTICK NEGATIVE (NEGATIVE); URINE KETONE 15 mg/dL (NEGATIVE); URINE LEUK ESTERASE NEGATIVE (NEGATIVE); URINE NITRITE - DIPSTICK NEGATIVE (Negative); URINE PROTEIN - DIPSTICK TRACE mg/dL (NEG-TRACE)
--- NOTE | 2019-04-30 10:34 | NUR ---
DILAUDID ADMINISTERED. PT TOLERATED WELL\ BEFORE ADMINISTRATION: HR 93 BP 128/82 RR 16 FIVE MIN AFTER BP:118/77 HR 78 RR 19 CALL LIGHT WITHIN REACH WILL CONTINUE TO MONITOR
[2019-04-30 10:36] LABS: URINE COLOR DK. YELLOW
[2019-04-30 10:50] LABS: HEMATOCRIT 44.9 % (37.0-47.0); HEMOGLOBIN 15.2 g/dl (12.0-16.0); IMMATURE GRANULOCYTES 0.5 % (0.0-5.0); MEAN CELL VOLUME 92.4 fL CALC (80.0-100.0); MEAN CORPUSCULAR HGB 31.3 pG CALC (26.0-32.0); MEAN CORPUSCULAR HGB CONC 33.9 g/L CALC (32.0-36.0); NEUT# 8.25 thou/uL (2.00-7.15); RED BLOOD COUNT 4.86 mill/uL (4.20-5.60); RED CELL DISTRI WIDTH 12.7 % (11.5-15.5)
[2019-04-30 11:04] LABS: ALBUMIN 4.5 g/dL (3.2-5.0); ALKALINE PHOSPHATASE 90 u/l (38-126); ANION GAP 16 (6-22 (CALC)); BUN 16 mg/dL (7-17); BUN/CREATININE RATIO 23 (12-20 (CALC)); CARBON DIOXIDE 24 mmol/l (22-30); CHLORIDE 101 mmol/l (95-108); CREATININE 0.7 mg/dL (0.5-1.0); GFR > 60 ML/MIN (>=60 (CALC)); GFR FOR AFR.AMER. > 60 ML/MIN (>=60 (CALC)); LIPASE 601 u/l (23-300); POTASSIUM 3.6 mmol/l (3.5-5.1); SGOT/AST 25 u/l (14-36); SODIUM 138 mmol/l (137-146); TOTAL PROTEIN 7.8 g/dL (6.3-8.2)
[2019-04-30 11:05] LABS: BILIRUBIN, TOTAL 0.9 mg/dL (0.0-1.4)
--- NOTE | 2019-04-30 11:15 | NUR ---
PT REPORTS PAIN IS NOW 6/10 AND IS RESTING COMFORTABLY IN STRETCHER AND DENIES ANY NEEDS AT THIS TIME. CALL TUCKER WITHIN REACH.
--- NOTE | 2019-04-30 11:37 | NUR ---
PT SLEEPING ON STRETCHER. WILL CONTINUE TO MONITOR.
--- NOTE | 2019-04-30 11:50 | NUR ---
PT REQUESTING MORE PAIN MEDICATION AT THIS TIME. NOTIFIED. PAIN NOW 02/17.
--- NOTE | 2019-04-30 12:24 | NUR ---
PT SLEEPING ON STRETCHER. WILL CONTINUE TO MONITOR.
--- NOTE | 2019-04-30 13:10 | NUR ---
PT MEDICATED FOR 8/10 PAIN TO ABD AND IS UPDATED ON PLAN OF CARE AND WAIT FOR ROOM ASSIGNMENT. CALL TUCKER WITHIN REACH.
[2019-04-30 13:47] LABS: BARBITURATES NEGATIVE (NEGATIVE); COCAINE NEGATIVE (NEGATIVE); METHADONE NEGATIVE (NEGATIVE); OXCYCODONE NEGATIVE (NEGATIVE); TETRAHYDROCANNABIONOL POSITIVE (NEGATIVE); TRICYLIC ANTIDEPRESSANTS NEGATIVE (NEGATIVE)
--- NOTE | 2019-04-30 14:07 | NUR ---
REPORT TO ELIZABETH
--- NOTE | 2019-04-30 14:10 | NUR ---
PT TRANSPORTED BY STRETCHER TO [facility] SUR[facility]. CARE ASSUMED TO ELIZABETH
--- NOTE | 2019-04-30 14:13 | NUR ---
PT ARRIVED FROM ER VIA [facility] STAFF.
[2019-04-30 14:20] VITALS: BP 117/69
--- NOTE | 2019-04-30 14:30 | NUR ---
ASSESSMENT IS COMPLETED: PT IS ALERT AND ORIENTED, BREATH SOUNDS ARE CLEAR BILATERALLY, NO C/O SOB, HR IS REG, PULSES ARE STRONG X4, ABD IS SOFT NON TENDER TO THE TOUCH, SKIN IS INTACT AND WARM TO THE TOUCH, PT STATES" I AM SWEATING" NO FEVER. C/O RIGHT EAR ACHING. STATED" THIS STARTED DOWNSTAIRS" INFORMED ELYSIA NELSON. STATED" IT FELT LIKE A POP AND THEN PAIN". CONTINUE TO OSBERVE AND MONITOR. PT AMBULATED FROM THE TO THE BATHROOM AND THEN TO BED.
[2019-04-30 17:05] VITALS: BP 108/72
[2019-04-30 19:05] VITALS: BP 108/72
--- NOTE | 2019-04-30 20:05 | NUR ---
PT MEDICATED FOR N/V AT THIS TIME. PT JUST GOT OUT OF THE SHOWER AND STATED SHE VOMITED JUST PRIOR TO GETTING INTO SHOWER. 50CC OF YELLOW EMESIS OBSERVED IN EMESIS BAG BY AIDE. PT ASSESSMENT COMPLETE, TENDERNESS REPORTED IN MID-UPPER QUADRANT OF ABD. WILL FOLLOW-UP WITH PO MEDICATIONS AFTER MEDICATION TAKES AFFECT. PT DENIES ANY OTHER NEEDS, CALL LIGHT W/IN HAND.
--- NOTE | 2019-04-30 20:48 | NUR ---
PT MEDICATED ORDERS PRVOIDE, REPORTS NAUSEA GONE. CALL LIGHT AT SIDE.
--- NOTE | 2019-04-30 22:06 | NUR ---
PT MEDICATED FOR PAIN 8/10 ON PAIN SCALE REPORTEDLY IN MID UPPER ABD. REQUEST FOR [place] ICE/PROVIDED, DENIES ANY OTHER NEEDS AT THIS TIME.
--- NOTE | 2019-05-01 02:30 | NUR ---
PT MEDICATED FOR PAIN 10/10 IN ABD. WHEN I ENTERED THE ROOM, PT WAS SITTING ON SIDE OF THE BED HOLDING ABD AND CRYING. DENIED NAUSEA/VOM AT THIS TIME. PT DENIED ANY OTHER NEEDS ONCE MEDICATION WAS GIVEN. WILL CONTINUE TO MONITOR. CALL LIGHT AT SIDE.
[2019-05-01 04:31] VITALS: BP 109/75
--- NOTE | 2019-05-01 04:36 | NUR ---
IVF REPLENISHED AND V/S ASSESSED AT THIS TIME. PT DENIES ANY OTHER NEEDS. APPEARED TO BE SLEEPING SOUNDLY WHEN WE ENTERED ROOM. CALL LIGHT AT SIDE.
[2019-05-01 05:00] LABS: IMMATURE GRANULOCYTES 0.3 % (0.0-5.0); MEAN CELL VOLUME 94.7 fL CALC (80.0-100.0); MEAN CORPUSCULAR HGB 31.6 pG CALC (26.0-32.0); MEAN CORPUSCULAR HGB CONC 33.3 g/L CALC (32.0-36.0); NEUT# 5.36 thou/uL (2.00-7.15); RED BLOOD COUNT 3.99 mill/uL (4.20-5.60); RED CELL DISTRI WIDTH 12.7 % (11.5-15.5)
[2019-05-01 05:08] LABS: HEMATOCRIT 37.8 % (37.0-47.0); HEMOGLOBIN 12.6 g/dl (12.0-16.0)
[2019-05-01 05:11] LABS: ANION GAP 13 (6-22 (CALC)); BUN 12 mg/dL (7-17); BUN/CREATININE RATIO 19 (12-20 (CALC)); CARBON DIOXIDE 23 mmol/l (22-30); CHLORIDE 106 mmol/l (95-108); CREATININE 0.6 mg/dL (0.5-1.0); GFR > 60 ML/MIN (>=60 (CALC)); GFR FOR AFR.AMER. > 60 ML/MIN (>=60 (CALC)); LIPASE 81 u/l (23-300); MAGNESIUM 1.9 mg/dL (1.6-2.3); POTASSIUM 3.7 mmol/l (3.5-5.1); SODIUM 139 mmol/l (137-146)
--- NOTE | 2019-05-01 07:00 | NUR ---
PT REPORTM RECIEVED FROM DIEGO DIOR. PT RESTING. NO S/S OF DISTRESS. CALL LIGHT IN REACH. WILL CONTINUE TO MONITOR.
[2019-05-01 07:25] VITALS: BP 98/69
--- NOTE | 2019-05-01 07:25 | NUR ---
PT A/O X3. RESP EVEN AND UNLABORED. LUNGS CLEAR. BOWEL SOUNDS HYPOACTIVE. UPPER QUADRANTS TENDER. PT C/O MID UPPER ABDOMINAL SHARP PAIN RADIATING TO BACK; 8 OUT OF 10 ON PAIN SCALE. MEDICATED W/ 1 MG DILAUDID. REPOSITIONED FOR COMFORT. NO N/V AT THIS TIME. STRONG RADIAL AND PEDAL PULSES. #22 RFA NS@150. SITE APPEARS HEALTHY. SKIN INTACT. PT DENIES ANY FURTHER NEEDS. POC DISCUSSED. SAFETY PRECAUTIONS IN PLACE. CALL LIGHT IN REACH. WILL CONTINUE TO MONITOR.
--- NOTE | 2019-05-01 11:49 | NUR ---
PT RESTING. NO C/O PAIN OR NEEDS. IV FLUIDS INFUSING. CALL LIGHT IN REACH. WILL CONTINUE TO MONITOR.
[2019-05-01 15:23] VITALS: BP 109/70
--- NOTE | 2019-05-01 16:21 | NUR ---
PT SLEEPING. NO C/O PAIN OR NEEDS. IV FLUIDS INFUSING. CALL LIGHT IN REACH. WILL CONTINUE TO MONITOR.
[2019-05-01 19:05] VITALS: BP 122/82
--- NOTE | 2019-05-01 19:33 | NUR ---
REPORT RECEIVED FROM DAY NURSE. PT CALLED ASKING FOR PAIN MEDICATION/PROVIDED. PT ASSESSMENT COMPLETED AT THIS TIME. NO S/O DISTRESS. CALL LIGHT IS AT SIDE AND PT ENCOURAGED TO CALL. PT ASKING FOR DRINKS/PROVIDED.
--- NOTE | 2019-05-01 22:31 | NUR ---
PT MEDICATED FOR ANXIETY ORDERS PROVIDE. PT REQUESTING ARMENIAN ICE AND CLAYTON STATING THAT HER THROAT IS SORE FROM COUGHING/PROVIDED. DENIES ANY OTHER NEEDS.
--- NOTE | 2019-05-02 01:45 | NUR ---
PT CALLED TO REPORT SHE WAS WET AND THINKS HER IV IS LEAKING. IV SITE FOUND TO BE SLIGHTLY REDDENED AND LEAKING AT SIDE/BURNED UPON FLUSH/REMOVED INTACT. PT REFUSED NEW IV SITE STATING THAT SHE IS GOING HOME IN AM AND IS NOT GETTING ANY IV MEDICATIONS. PT IS NOT ON TELEMETRY MONITORING. WILL NOTIFY PHYSICIAN IN AM OF IV SITE LOSS/REFUSAL.
--- NOTE | 2019-05-02 04:08 | NUR ---
PT CALLED ASKING FOR MORE TRISTANBERT. DENIES ANY OTHER NEEDS AT THIS TIME.
[2019-05-02 04:17] VITALS: BP 114/73
--- NOTE | 2019-05-02 06:55 | NUR ---
PT REPORT RECIEVED FROM DIEGO DIOR. PT RESTING. NO S/S OF DISTRESS. CALL LIGHT IN REACH. WILL CONTINUE TO MONITOR.
[2019-05-02 07:39] VITALS: BP 109/74
--- NOTE | 2019-05-02 07:39 | NUR ---
PT A/O X3. RESP EVEN AND UNLABORED. LUNGS CLEAR. BOWEL SOUNDS ACTIVE X4. PT C/O SHARP MID ABDOMEN PAIN RADIATING TO BACK; 7 OUT OF 10 ON PAIN SCALE. MEDICATED W/ ONE 5/325 PERCOCET PO. REPOSITIONED FOR COMFORT. STRONG RADIAL AND PEDAL PULSES. SKIN INTACT. NO IV SITE. PT DENIES ANY FURTHER NEEDS. POC DISCUSSED. SAFETY PRECAUTIONS IN PLACE. CALL LIGHT IN REACH. WILL CONTINUE TO MONITOR.
[2019-05-02] MEDS ORDERED: AMOX/K CLAV875 M1 PO (09:34)
--- NOTE | 2019-05-02 10:21 | NUR ---
D/C INSTRUCTIONS DISCUSSED W/ PT. PT STATES UNDERSTANDING. NO IV SITE TO REMOVE. PT AMBULATING DOWNSTAIRS W/ FRIENDS.
== END 2019-05-02 10:20 | disposition home or self-care (01) | DRG 440 ==
LOC: ED 09:01 → ED-I 12:29 → ED 12:42 → MS2 12:43
PROVIDERS: Family Medicine; Nurse Practitioner Family; ADMIT Internal Medicine; ATTEND Internal Medicine
DX: K85.90 Acute pancreatitis without necrosis or infection, unspecified (principal); K86.1 Other chronic pancreatitis; H66.91 Otitis media, unspecified, right ear; J32.9 Chronic sinusitis, unspecified; F41.9 Anxiety disorder, unspecified; F31.9 Bipolar disorder, unspecified; F43.10 Post-traumatic stress disorder, unspecified; F12.90 Cannabis use, unspecified, uncomplicated; R82.5 Elevated urine levels of drugs, medicaments and biological substances; F17.210 Nicotine dependence, cigarettes, uncomplicated; Z88.5 Allergy status to narcotic agent; Z87.11 Personal history of peptic ulcer disease
CPT/HCPCS: G0378; Q9967

== ENCOUNTER 2020-05-02 12:00 | Emergency (ER) | payer SELFPAY ==
[~2020-05-02] VITALS: Ht 152.4 cm; Wt 73.0 kg
[~2020-05-02 12:00] MED LIST changes: +ABILIFY10 MG PO; +AMOX/K CLAV875 M1 PO
[2020-05-02 13:11] LABS: URINE BILIRUBIN - DIPSTICK NEGATIVE (NEGATIVE); URINE BLOOD DIPSTICK SMALL (NEGATIVE); URINE COLOR YELLOW; URINE GLUCOSE - DIPSTICK NEGATIVE (NEGATIVE); URINE KETONE NEGATIVE (NEGATIVE); URINE LEUK ESTERASE NEGATIVE (NEGATIVE); URINE NITRITE - DIPSTICK NEGATIVE (Negative); URINE PH 6.5 (4.5-8.0); URINE PROTEIN - DIPSTICK NEGATIVE (NEG-TRACE); URINE UROBILINOGEN - DIPSTICK 0.2 E.U./dL (0.2)
[2020-05-02 13:14] LABS: URINE EPITHELIAL CELLS FEW EPI/hpf (0-FEW)
[2020-05-02 13:40] LABS: HEMATOCRIT 48.2 % (37.0-47.0); HEMOGLOBIN 15.9 g/dl (12.0-16.0); IMMATURE GRANULOCYTES 0.2 % (0.0-5.0); NEUT# 4.08 thou/uL (2.00-7.15); RED BLOOD COUNT 5.13 mill/uL (4.20-5.60); RED CELL DISTRI WIDTH 12.2 % (11.5-15.5)
[2020-05-02 13:54] LABS: ALBUMIN 4.6 g/dL (3.2-5.0); ALKALINE PHOSPHATASE 72 u/l (38-126); AMYLASE 73 u/l (30-110); ANION GAP 15 (6-22 (CALC)); BUN 16 mg/dL (7-17); BUN/CREATININE RATIO 21 (12-20 (CALC)); CARBON DIOXIDE 24 mmol/l (22-30); CHLORIDE 102 mmol/l (95-108); CREATININE 0.8 mg/dL (0.5-1.0); GFR > 60 ML/MIN (>=60 (CALC)); GFR FOR AFR.AMER. > 60 ML/MIN (>=60 (CALC)); LIPASE 112 u/l (23-300); SGOT/AST 19 u/l (14-36); SODIUM 137 mmol/l (137-146); TOTAL PROTEIN 7.7 g/dL (6.3-8.2)
[2020-05-02 13:56] LABS: BILIRUBIN, TOTAL 0.4 mg/dL (0.0-1.4)
[2020-05-02] MEDS ORDERED: PHENERGAN25 MG/TAB PO (15:00)
[2020-05-02] MEDS ORDERED: PROTONIX40 M2 PO (15:00)
[2020-05-02 15:07] VITALS: BP 114/85
== END 2020-05-02 15:18 | disposition home or self-care (01) | DRG 392 ==
LOC: ED 12:00
DX: R10.13 Epigastric pain (principal); R11.2 Nausea with vomiting, unspecified; F31.9 Bipolar disorder, unspecified; F17.200 Nicotine dependence, unspecified, uncomplicated; Z87.11 Personal history of peptic ulcer disease
CPT/HCPCS: Q9967; S0164

== ENCOUNTER 2020-10-28 | Emergency (ER) | payer SELFPAY | END 2020-10-28 20:43 | disposition home or self-care (01) | DRG 605 | DX: S90.31XA Contusion of right foot, initial encounter (principal); F31.9 Bipolar disorder, unspecified; X58.XXXA Exposure to other specified factors, initial encounter; Y93.01 Activity, walking, marching and hiking; Y92.410 Unspecified street and highway as the place of occurrence of the external cause ==

== ENCOUNTER 2021-04-07 18:02 | Emergency (ER) | payer SELFPAY ==
[~2021-04-07] VITALS: Ht 152.4 cm; Wt 60.0 kg
[2021-04-07 19:23] LABS: IMMATURE GRANULOCYTES 0.2 % (0.0-5.0); MEAN CELL VOLUME 97.7 fL CALC (80.0-100.0); MEAN CORPUSCULAR HGB 32.2 pG CALC (26.0-32.0); NEUT# 7.21 thou/uL (2.00-7.15); RED BLOOD COUNT 4.28 mill/uL (4.20-5.60); RED CELL DISTRI WIDTH 12.1 % (11.5-15.5)
[2021-04-07 19:26] LABS: HEMATOCRIT 41.8 % (37.0-47.0); HEMOGLOBIN 13.8 g/dl (12.0-16.0)
[2021-04-07 19:29] LABS: ALBUMIN 4.2 g/dL (3.2-5.0); ALKALINE PHOSPHATASE 65 u/l (38-126); ANION GAP 11 (6-22 (CALC)); BILIRUBIN, TOTAL 0.4 mg/dL (0.0-1.4); BUN 13 mg/dL (7-17); BUN/CREATININE RATIO 19 (12-20 (CALC)); CARBON DIOXIDE 23 mmol/l (22-30); CHLORIDE 107 mmol/l (95-108); CREATININE 0.7 mg/dL (0.5-1.0); GFR > 60 ML/MIN (>=60 (CALC)); GFR FOR AFR.AMER. > 60 ML/MIN (>=60 (CALC)); POTASSIUM 4.3 mmol/l (3.5-5.1); SGOT/AST 16 u/l (14-36); SODIUM 137 mmol/l (137-146); TOTAL PROTEIN 7.4 g/dL (6.3-8.2)
[2021-04-07] MEDS ORDERED: PERCOCET 10/31 COMBO PO (19:58)
[2021-04-07] MEDS ORDERED: BACTRIM DS1 TAB PO (19:58)
[2021-04-07] MEDS ORDERED: KEFLEX500 MG PO (19:58)
[2021-04-07 20:36] VITALS: BP 128/69
== END 2021-04-07 20:34 | disposition home or self-care (01) | DRG 603 ==
LOC: ED 18:02
PROVIDERS: Emergency Medicine
PROC: 0H9MXZZ Drainage of Right Foot Skin, External Approach (ICD-10-PCS; principal; 2021-04-07)
DX: L02.611 Cutaneous abscess of right foot (principal); F31.9 Bipolar disorder, unspecified

== ENCOUNTER 2021-04-09 20:27 | Emergency (ER) | payer SELFPAY ==
[~2021-04-09] VITALS: Ht 152.4 cm; Wt 75.0 kg
[~2021-04-09 20:27] MED LIST changes: +KEFLEX500 MG PO
[2021-04-09 22:35] LABS: HEMATOCRIT 40.7 % (37.0-47.0); HEMOGLOBIN 13.5 g/dl (12.0-16.0); IMMATURE GRANULOCYTES 0.1 % (0.0-5.0); MEAN CELL VOLUME 96.7 fL CALC (80.0-100.0); MEAN CORPUSCULAR HGB 32.1 pG CALC (26.0-32.0); MEAN CORPUSCULAR HGB CONC 33.2 g/dL CAL (32.0-36.0); NEUT# 2.71 thou/uL (2.00-7.15); RED BLOOD COUNT 4.21 mill/uL (4.20-5.60); RED CELL DISTRI WIDTH 11.9 % (11.5-15.5)
[2021-04-09 23:04] LABS: ALKALINE PHOSPHATASE 62 u/l (38-126); ANION GAP 11 (6-22 (CALC)); BILIRUBIN, TOTAL 0.3 mg/dL (0.0-1.4); BUN 16 mg/dL (7-17); BUN/CREATININE RATIO 21 (12-20 (CALC)); CARBON DIOXIDE 23 mmol/l (22-30); CHLORIDE 106 mmol/l (95-108); CREATININE 0.8 mg/dL (0.5-1.0); GFR > 60 ML/MIN (>=60 (CALC)); GFR FOR AFR.AMER. > 60 ML/MIN (>=60 (CALC)); POTASSIUM 4.1 mmol/l (3.5-5.1); SGOT/AST 16 u/l (14-36); SODIUM 135 mmol/l (137-146)
[2021-04-09 23:07] VITALS: BP 110/72
== END 2021-04-09 23:07 | disposition home or self-care (01) | DRG 951 ==
LOC: ED 20:27
PROVIDERS: Emergency Medicine
DX: Z48.01 Encounter for change or removal of surgical wound dressing (principal)

== ENCOUNTER 2021-08-15 07:30 | Emergency (ER) | payer SELFPAY ==
[~2021-08-15] VITALS: Ht 162.6 cm; Wt 66.8 kg
[2021-08-15 08:21] LABS: URINE BILIRUBIN - DIPSTICK NEGATIVE (NEGATIVE); URINE BLOOD DIPSTICK NEGATIVE (NEGATIVE); URINE COLOR YELLOW; URINE GLUCOSE - DIPSTICK NEGATIVE (NEGATIVE); URINE KETONE NEGATIVE (NEGATIVE); URINE LEUK ESTERASE NEGATIVE (NEGATIVE); URINE PROTEIN - DIPSTICK NEGATIVE (NEG-TRACE); URINE SPECIFIC GRAVITY 1.015; URINE UROBILINOGEN - DIPSTICK 0.2 E.U./dL (0.2)
[2021-08-15 08:22] LABS: URINE NITRITE - DIPSTICK NEGATIVE (Negative)
[2021-08-15 09:35] LABS: HEMATOCRIT 39.4 % (37.0-47.0); HEMOGLOBIN 12.8 g/dl (12.0-16.0); MEAN CELL VOLUME 98.7 fL CALC (80.0-100.0); MEAN CORPUSCULAR HGB 32.1 pG CALC (26.0-32.0); MEAN CORPUSCULAR HGB CONC 32.5 g/dL CAL (32.0-36.0); NEUT# 2.21 thou/uL (2.00-7.15); RED BLOOD COUNT 3.99 mill/uL (4.20-5.60); RED CELL DISTRI WIDTH 12.2 % (11.5-15.5)
[2021-08-15 09:50] LABS: ALBUMIN 3.5 g/dL (3.2-5.0); ALKALINE PHOSPHATASE 53 u/l (38-126); AMYLASE 73 u/l (30-110); ANION GAP 10 (6-22 (CALC)); BILIRUBIN, TOTAL 0.2 mg/dL (0.0-1.4); BUN 14 mg/dL (7-17); BUN/CREATININE RATIO 24 (12-20 (CALC)); CARBON DIOXIDE 21 mmol/l (22-30); CHLORIDE 110 mmol/l (95-108); CREATININE 0.6 mg/dL (0.5-1.0); ETHYL ALCOHOL 0 mg/dl (0-30); GFR > 60 ML/MIN (>=60 (CALC)); GFR FOR AFR.AMER. > 60 ML/MIN (>=60 (CALC)); LIPASE 157 u/l (23-300); POTASSIUM 4.4 mmol/l (3.5-5.1); SGOT/AST 18 u/l (14-36); SODIUM 136 mmol/l (137-146); TOTAL PROTEIN 6.4 g/dL (6.3-8.2)
[2021-08-15] MEDS ORDERED: PROTONIX20 M1 PO (10:00)
[2021-08-15] MEDS ORDERED: ADDERALL30 MG PO (10:01)
[2021-08-15] MEDS ORDERED: PHENERGAN25 MG RE (10:28)
[2021-08-15] MEDS ORDERED: PROTONIX40 M2 PO (10:28)
[2021-08-15 11:04] VITALS: BP 119/62
== END 2021-08-15 11:47 | disposition home or self-care (01) | DRG 392 ==
LOC: ED 07:30
DX: R10.13 Epigastric pain (principal); R11.2 Nausea with vomiting, unspecified; F31.9 Bipolar disorder, unspecified; Z87.11 Personal history of peptic ulcer disease
CPT/HCPCS: S0164

== ENCOUNTER 2021-11-18 11:10 | Emergency (ER) | payer SELFPAY ==
[~2021-11-18] VITALS: Ht 162.6 cm; Wt 66.8 kg
[~2021-11-18 11:10] MED LIST changes: +ADDERALL30 MG PO; +PHENERGAN25 MG RE; +PROTONIX20 M1 PO
[2021-11-18 11:20] VITALS: BP 102/76
[2021-11-18 11:59] LABS: HEMATOCRIT 42.7 % (37.0-47.0); HEMOGLOBIN 13.9 g/dl (12.0-16.0); IMMATURE GRANULOCYTES 0.1 % (0.0-5.0); MEAN CELL VOLUME 98.2 fL CALC (80.0-100.0); MEAN CORPUSCULAR HGB CONC 32.6 g/dL CAL (32.0-36.0); NEUT# 3.53 thou/uL (2.00-7.15); RED BLOOD COUNT 4.35 mill/uL (4.20-5.60); RED CELL DISTRI WIDTH 12.6 % (11.5-15.5)
[2021-11-18 12:16] LABS: ALBUMIN 3.7 g/dL (3.2-5.0); ALKALINE PHOSPHATASE 59 u/l (38-126); ANION GAP 10 (6-22 (CALC)); BUN 13 mg/dL (7-17); BUN/CREATININE RATIO 21 (12-20 (CALC)); CARBON DIOXIDE 22 mmol/l (22-30); CHLORIDE 109 mmol/l (95-108); CREATININE 0.6 mg/dL (0.5-1.0); GFR > 60 ML/MIN (>=60 (CALC)); GFR FOR AFR.AMER. > 60 ML/MIN (>=60 (CALC)); LIPASE 131 u/l (23-300); POTASSIUM 4.9 mmol/l (3.5-5.1); SGOT/AST 16 u/l (14-36); SODIUM 137 mmol/l (137-146); TOTAL PROTEIN 6.4 g/dL (6.3-8.2)
[2021-11-18 16:17] LABS: URINE BILIRUBIN - DIPSTICK NEGATIVE (NEGATIVE); URINE BLOOD DIPSTICK TRACE-INTACT (NEGATIVE); URINE COLOR YELLOW; URINE GLUCOSE - DIPSTICK NEGATIVE (NEGATIVE); URINE KETONE NEGATIVE (NEGATIVE); URINE LEUK ESTERASE NEGATIVE (NEGATIVE); URINE PROTEIN - DIPSTICK NEGATIVE (NEG-TRACE); URINE SPECIFIC GRAVITY >=1.030; URINE UROBILINOGEN - DIPSTICK 0.2 E.U./dL (0.2)
[2021-11-18 16:28] LABS: URINE NITRITE - DIPSTICK NEGATIVE (Negative)
[2021-11-18] MEDS ORDERED: PROMETHAZINE HY25 M1 PO (18:00)
== END 2021-11-18 18:50 | disposition home or self-care (01) | DRG 392 ==
LOC: ED 11:10
PROVIDERS: Family Medicine
PROC: 05HM33Z Insertion of Infusion Device into Right Internal Jugular Vein, Percutaneous Approach (ICD-10-PCS; principal; 2021-11-18)
DX: R10.13 Epigastric pain (principal); R10.12 Left upper quadrant pain; F10.10 Alcohol abuse, uncomplicated; F31.9 Bipolar disorder, unspecified; F17.210 Nicotine dependence, cigarettes, uncomplicated; Z87.11 Personal history of peptic ulcer disease; Z20.822 Contact with and (suspected) exposure to COVID-19

== ENCOUNTER 2021-12-31 13:40 | Emergency (ER) | payer SELFPAY ==
[~2021-12-31] VITALS: Ht 162.6 cm; Wt 66.8 kg
[~2021-12-31 13:40] MED LIST changes: +PROMETHAZINE HY25 M1 PO
[2021-12-31 14:34] VITALS: BP 111/65
[2021-12-31 15:19] LABS: HEMATOCRIT 37.6 % (37.0-47.0); HEMOGLOBIN 12.4 g/dl (12.0-16.0); IMMATURE GRANULOCYTES 0.1 % (0.0-5.0); MEAN CELL VOLUME 99.5 fL CALC (80.0-100.0); MEAN CORPUSCULAR HGB 32.8 pG CALC (26.0-32.0); NEUT# 3.11 thou/uL (2.00-7.15); RED BLOOD COUNT 3.78 mill/uL (4.20-5.60); RED CELL DISTRI WIDTH 13.4 % (11.5-15.5)
[2021-12-31 15:20] LABS: URINE BILIRUBIN - DIPSTICK NEGATIVE (NEGATIVE); URINE BLOOD DIPSTICK NEGATIVE (NEGATIVE); URINE COLOR YELLOW; URINE GLUCOSE - DIPSTICK NEGATIVE (NEGATIVE); URINE KETONE NEGATIVE (NEGATIVE); URINE LEUK ESTERASE NEGATIVE (NEGATIVE); URINE PROTEIN - DIPSTICK NEGATIVE (NEG-TRACE); URINE SPECIFIC GRAVITY 1.015; URINE UROBILINOGEN - DIPSTICK 0.2 E.U./dL (0.2)
[2021-12-31 15:22] LABS: URINE NITRITE - DIPSTICK NEGATIVE (Negative)
[2021-12-31 15:27] VITALS: BP 93/54
[2021-12-31 15:28] VITALS: BP 92/60
[2021-12-31 15:30] VITALS: BP 96/64
[2021-12-31 16:35] VITALS: BP 111/65
[2021-12-31 16:38] LABS: ALBUMIN 3.4 g/dL (3.2-5.0); ALKALINE PHOSPHATASE 49 u/l (38-126); AMYLASE 90 u/l (30-110); ANION GAP 8 (6-22 (CALC)); BUN 10 mg/dL (7-17); BUN/CREATININE RATIO 14 (12-20 (CALC)); CARBON DIOXIDE 22 mmol/l (22-30); CHLORIDE 111 mmol/l (95-108); CREATININE 0.7 mg/dL (0.5-1.0); GFR FOR AFR.AMER. > 60 ML/MIN (>=60 (CALC)); GFR OTHER RACES > 60 ML/MIN (>=60 (CALC)); LIPASE 187 u/l (23-300); POTASSIUM 4.3 mmol/l (3.5-5.1); SGOT/AST 19 u/l (14-36); SODIUM 137 mmol/l (137-146); TOTAL PROTEIN 5.9 g/dL (6.3-8.2)
[2021-12-31 16:47] LABS: BILIRUBIN, TOTAL 0.2 mg/dL (0.0-1.4)
== END 2021-12-31 16:25 | disposition left against medical advice (07) | DRG 392 ==
LOC: ED 13:40
PROVIDERS: Nurse Practitioner
DX: R10.11 Right upper quadrant pain (principal); R11.2 Nausea with vomiting, unspecified; K86.1 Other chronic pancreatitis; F31.9 Bipolar disorder, unspecified; F17.210 Nicotine dependence, cigarettes, uncomplicated; Z91.19 Patient's noncompliance with other medical treatment and regimen
CPT/HCPCS: S0164

== ENCOUNTER 2022-01-13 00:56 | Emergency (ER) | payer SELFPAY ==
[~2022-01-13] VITALS: Ht 162.6 cm; Wt 73.0 kg
[2022-01-13 02:21] LABS: URINE BILIRUBIN - DIPSTICK NEGATIVE (NEGATIVE); URINE BLOOD DIPSTICK NEGATIVE (NEGATIVE); URINE COLOR YELLOW; URINE GLUCOSE - DIPSTICK NEGATIVE (NEGATIVE); URINE KETONE NEGATIVE (NEGATIVE); URINE LEUK ESTERASE NEGATIVE (NEGATIVE); URINE PROTEIN - DIPSTICK NEGATIVE (NEG-TRACE); URINE SPECIFIC GRAVITY >=1.030; URINE UROBILINOGEN - DIPSTICK 0.2 E.U./dL (0.2)
[2022-01-13 02:22] LABS: HEMATOCRIT 37.2 % (37.0-47.0); HEMOGLOBIN 12.2 g/dl (12.0-16.0); IMMATURE GRANULOCYTES 0.1 % (0.0-5.0); MEAN CELL VOLUME 99.7 fL CALC (80.0-100.0); MEAN CORPUSCULAR HGB 32.7 pG CALC (26.0-32.0); MEAN CORPUSCULAR HGB CONC 32.8 g/dL CAL (32.0-36.0); NEUT# 2.97 thou/uL (2.00-7.15); RED BLOOD COUNT 3.73 mill/uL (4.20-5.60); RED CELL DISTRI WIDTH 13.6 % (11.5-15.5); URINE NITRITE - DIPSTICK NEGATIVE (Negative)
[2022-01-13 02:40] LABS: ALBUMIN 3.4 g/dL (3.2-5.0); ALKALINE PHOSPHATASE 46 u/l (38-126); AMYLASE 100 u/l (30-110); ANION GAP 7 (6-22 (CALC)); BILIRUBIN, TOTAL 0.2 mg/dL (0.0-1.4); BUN 17 mg/dL (7-17); BUN/CREATININE RATIO 21 (12-20 (CALC)); CARBON DIOXIDE 24 mmol/l (22-30); CHLORIDE 108 mmol/l (95-108); CREATININE 0.8 mg/dL (0.5-1.0); GFR FOR AFR.AMER. > 60 ML/MIN (>=60 (CALC)); GFR OTHER RACES > 60 ML/MIN (>=60 (CALC)); LIPASE 189 u/l (23-300); POTASSIUM 3.7 mmol/l (3.5-5.1); SGOT/AST 17 u/l (14-36); SODIUM 136 mmol/l (137-146); TOTAL PROTEIN 6.1 g/dL (6.3-8.2)
[2022-01-13 02:49] LABS: MYOGLOBIN 17 ng/mL (0 - 62)
[2022-01-13] MEDS ORDERED: ONDANSETRON4 MG PO (03:40)
[2022-01-13] MEDS ORDERED: PREVACID30 M3 PO (03:40)
[2022-01-13] MEDS ORDERED: ULTRAM50 M1 PO (03:40)
[2022-01-13 03:49] VITALS: BP 105/70
== END 2022-01-13 04:28 | disposition home or self-care (01) | DRG 392 ==
LOC: ED 00:56
PROVIDERS: Emergency Medicine
DX: K21.9 Gastro-esophageal reflux disease without esophagitis (principal); F31.9 Bipolar disorder, unspecified; F17.200 Nicotine dependence, unspecified, uncomplicated; Z87.11 Personal history of peptic ulcer disease
CPT/HCPCS: Q9967; S0164

== ENCOUNTER 2022-09-24 15:59 | Emergency (ER) | payer BC ==
[~2022-09-24 15:59] MED LIST changes: +LORTAB 7.57.5 MG PO; +ONDANSETRON4 MG PO; +PROTONIX40 M4 PO
== END 2022-09-24 16:34 | disposition left against medical advice (07) | DRG 951 ==
LOC: ED 15:59 → LWOBS 16:34
DX: Z53.21 Procedure and treatment not carried out due to patient leaving prior to being seen by health care provider (principal)

== ENCOUNTER 2022-10-01 14:50 | Emergency (ER) | payer BC ==
[~2022-10-01] VITALS: Ht 154.9 cm; Wt 66.0 kg
[2022-10-01 14:58] VITALS: BP 125/88
[2022-10-01 15:01] VITALS: BP 101/77
[2022-10-01 15:23] LABS: BASO% 0.3 % (0-3); EOS% 1.3 % (0-8); HEMATOCRIT 44.9 % (37.0-47.0); IMMATURE GRANULOCYTES 0.1 % (0.0-5.0); LYMPH% 47.7 % (15-41); MEAN CORPUSCULAR HGB 31.6 pG CALC (26.0-32.0); MEAN CORPUSCULAR HGB CONC 33.2 g/dL CAL (32.0-36.0); NEUT# 5.27 thou/uL (2.00-7.15); NEUT% 44.6 % (42-76); RED BLOOD COUNT 4.72 mill/uL (4.20-5.60); RED CELL DISTRI WIDTH 12.2 % (11.5-15.5)
[2022-10-01 15:24] LABS: HEMOGLOBIN 14.9 g/dl (12.0-16.0); MEAN CELL VOLUME 95.1 fL CALC (80.0-100.0)
[2022-10-01 15:35] LABS: AMYLASE 74 u/l (30-110); BUN 20 mg/dL (7-17); BUN/CREATININE RATIO 23 (12-20 (CALC)); CHLORIDE 103 mmol/l (95-108); CREATININE 0.9 mg/dL (0.5-1.0); GFR FOR AFR.AMER. > 60 ML/MIN (>=60 (CALC)); GFR OTHER RACES > 60 ML/MIN (>=60 (CALC)); LIPASE 90 u/l (23-300); POTASSIUM 3.7 mmol/l (3.5-5.1); SGOT/AST 23 u/l (14-36); SODIUM 137 mmol/l (137-146)
[2022-10-01 15:40] LABS: ALBUMIN 4.6 g/dL (3.2-5.0); ALKALINE PHOSPHATASE 75 u/l (38-126); ANION GAP 15 (6-22 (CALC)); BILIRUBIN, TOTAL 1.1 mg/dL (0.02-1.3); CARBON DIOXIDE 23 mmol/l (22-30); TOTAL PROTEIN 7.7 g/dL (6.3-8.2)
[2022-10-01 16:00] VITALS: BP 111/69
[2022-10-01 17:01] VITALS: BP 117/78
[2022-10-01 19:25] LABS: URINE BLOOD DIPSTICK TRACE-INTACT (NEGATIVE); URINE COLOR YELLOW; URINE GLUCOSE - DIPSTICK NEGATIVE (NEGATIVE); URINE KETONE TRACE mg/dL (NEGATIVE); URINE LEUK ESTERASE TRACE (NEGATIVE); URINE PROTEIN - DIPSTICK 30 mg/dL (NEG-TRACE); URINE SPECIFIC GRAVITY >=1.030
[2022-10-01 19:28] LABS: URINE BILIRUBIN - DIPSTICK SMALL (NEGATIVE); URINE NITRITE - DIPSTICK NEGATIVE (Negative)
[2022-10-01 19:29] LABS: URINE MUCUS FEW hpf (NONE-FEW); URINE RBC 0-2 RBC/hpf (0-5); URINE SQUAMOUS EPITHELIAL CELL MANY EPI/hpf (0-FEW)
[2022-10-01] MEDS ORDERED: DICYCLOMINE10 MG PO (20:08)
[2022-10-01] MEDS ORDERED: PROMETHAZINE HY25 M1 PO (20:08)
[2022-10-01 20:22] VITALS: BP 117/78
== END 2022-10-01 20:30 | disposition home or self-care (01) | DRG 392 ==
LOC: ED 14:50
PROVIDERS: Nurse Practitioner
DX: R11.2 Nausea with vomiting, unspecified (principal); R10.13 Epigastric pain
CPT/HCPCS: S0164

== ENCOUNTER 2022-10-06 03:31 | Emergency (ER) | payer BC ==
[~2022-10-06 03:31] MED LIST changes: +DICYCLOMINE10 MG PO
[2022-10-06 05:17] VITALS: BP 00/00
== END 2022-10-06 04:45 | disposition left against medical advice (07) | DRG 951 ==
LOC: ED 03:31 → LWOBS 03:45
DX: Z53.21 Procedure and treatment not carried out due to patient leaving prior to being seen by health care provider (principal)

== ENCOUNTER 2023-01-18 14:59 | Inpatient (IN) | payer BC ==
[2023-01-18] VITALS (16 sets, daily range): BP systolic 71–112; BP diastolic 46–77
[~2023-01-18] VITALS: Ht 154.9 cm; Wt 64.7 kg
[2023-01-18 15:33] LABS: ALBUMIN 3.9 g/dL (3.2-5.0); ALKALINE PHOSPHATASE 58 u/l (38-126); ANION GAP 12 (6-22 (CALC)); BUN 18 mg/dL (7-17); BUN/CREATININE RATIO 20 (12-20 (CALC)); CARBON DIOXIDE 22 mmol/l (22-30); CHLORIDE 107 mmol/l (95-108); CREATININE 0.9 mg/dL (0.5-1.0); GFR FOR AFR.AMER. > 60 ML/MIN (>=60 (CALC)); GFR OTHER RACES > 60 ML/MIN (>=60 (CALC)); LIPASE 1198 u/l (23-300); POTASSIUM 4.4 mmol/l (3.5-5.1); SODIUM 135 mmol/l (137-146); TOTAL PROTEIN 6.8 g/dL (6.3-8.2)
[2023-01-18 15:46] LABS: BILIRUBIN, TOTAL 0.4 mg/dL (0.02-1.3); SGOT/AST 41 u/l (14-36)
[2023-01-18 16:10] LABS: BASO% 0.8 % (0-3); EOS% 4.1 % (0-8); HEMATOCRIT 39.6 % (37.0-47.0); IMMATURE GRANULOCYTES 0.1 % (0.0-5.0); LYMPH% 63.1 % (15-41); MEAN CELL VOLUME 96.1 fL CALC (80.0-100.0); MEAN CORPUSCULAR HGB 31.1 pG CALC (26.0-32.0); MEAN CORPUSCULAR HGB CONC 32.3 g/dL CAL (32.0-36.0); MONO% 5.7 % (2-13); NEUT# 2.03 thou/uL (2.00-7.15); NEUT% 26.2 % (42-76); RED BLOOD COUNT 4.12 mill/uL (4.20-5.60); RED CELL DISTRI WIDTH 12.3 % (11.5-15.5)
[2023-01-18 16:11] LABS: HEMOGLOBIN 12.8 g/dl (12.0-16.0)
[2023-01-19] VITALS (7 sets, daily range): BP systolic 92–112; BP diastolic 30–66
[2023-01-19 05:32] LABS: BASO% 0.7 % (0-3); EOS% 3.7 % (0-8); HEMOGLOBIN 12.4 g/dl (12.0-16.0); IMMATURE GRANULOCYTES 0.1 % (0.0-5.0); LYMPH% 62.2 % (15-41); MEAN CORPUSCULAR HGB 31.8 pG CALC (26.0-32.0); MEAN CORPUSCULAR HGB CONC 31.8 g/dL CAL (32.0-36.0); MONO% 4.5 % (2-13); NEUT# 2.43 thou/uL (2.00-7.15); NEUT% 28.8 % (42-76); RED BLOOD COUNT 3.9 mill/uL (4.20-5.60); RED CELL DISTRI WIDTH 12.6 % (11.5-15.5)
[2023-01-19 05:42] LABS: ALBUMIN 3.2 g/dL (3.2-5.0); ALKALINE PHOSPHATASE 55 u/l (38-126); ANION GAP 5 (6-22 (CALC)); BUN 15 mg/dL (7-17); BUN/CREATININE RATIO 20 (12-20 (CALC)); CARBON DIOXIDE 23 mmol/l (22-30); CHLORIDE 112 mmol/l (95-108); CREATININE 0.7 mg/dL (0.5-1.0); GFR FOR AFR.AMER. > 60 ML/MIN (>=60 (CALC)); GFR OTHER RACES > 60 ML/MIN (>=60 (CALC)); LIPASE 396 u/l (23-300); POTASSIUM 4.1 mmol/l (3.5-5.1); SGOT/AST 27 u/l (14-36); SODIUM 136 mmol/l (137-146); TOTAL PROTEIN 5.7 g/dL (6.3-8.2)
[2023-01-19 05:45] LABS: BILIRUBIN, TOTAL 0.2 mg/dL (0.02-1.3)
[2023-01-20 00:11] VITALS: BP 113/60
[2023-01-20 04:10] VITALS: BP 103/58
[2023-01-20 05:54] LABS: BASO% 0.5 % (0-3); EOS% 3.8 % (0-8); HEMATOCRIT 38.1 % (37.0-47.0); HEMOGLOBIN 12.4 g/dl (12.0-16.0); IMMATURE GRANULOCYTES 0.1 % (0.0-5.0); LYMPH% 56.3 % (15-41); MEAN CELL VOLUME 98.2 fL CALC (80.0-100.0); MEAN CORPUSCULAR HGB CONC 32.5 g/dL CAL (32.0-36.0); MONO% 4.1 % (2-13); NEUT# 2.74 thou/uL (2.00-7.15); NEUT% 35.2 % (42-76); RED BLOOD COUNT 3.88 mill/uL (4.20-5.60); RED CELL DISTRI WIDTH 12.2 % (11.5-15.5)
[2023-01-20 06:01] LABS: ALBUMIN 3.1 g/dL (3.2-5.0); ALKALINE PHOSPHATASE 55 u/l (38-126); AMYLASE 75 u/l (30-110); ANION GAP 8 (6-22 (CALC)); BILIRUBIN, TOTAL 0.3 mg/dL (0.02-1.3); BUN 8 mg/dL (7-17); BUN/CREATININE RATIO 9 (12-20 (CALC)); CARBON DIOXIDE 23 mmol/l (22-30); CHLORIDE 113 mmol/l (95-108); CREATININE 0.9 mg/dL (0.5-1.0); GFR FOR AFR.AMER. > 60 ML/MIN (>=60 (CALC)); GFR OTHER RACES > 60 ML/MIN (>=60 (CALC)); LIPASE 127 u/l (23-300); POTASSIUM 4.1 mmol/l (3.5-5.1); SGOT/AST 23 u/l (14-36); SODIUM 140 mmol/l (137-146); TOTAL PROTEIN 5.5 g/dL (6.3-8.2)
[2023-01-20 06:58] VITALS: BP 96/53
[2023-01-20] MEDS ORDERED: CREON12000 UNT PO (09:24)
[2023-01-20] MEDS ORDERED: LORTAB5 PO (09:25)
[2023-01-20] MEDS ORDERED: ZOFRAN4 MG/TAB PO (09:25)
[2023-01-20 11:15] VITALS: BP 112/75
[2023-01-20 13:30] LABS: URINE BILIRUBIN - DIPSTICK NEGATIVE (NEGATIVE); URINE BLOOD DIPSTICK TRACE-LYSED (NEGATIVE); URINE COLOR YELLOW; URINE GLUCOSE - DIPSTICK NEGATIVE (NEGATIVE); URINE KETONE NEGATIVE (NEGATIVE); URINE LEUK ESTERASE NEGATIVE (NEGATIVE); URINE PH 5.5 (4.5-8.0); URINE PROTEIN - DIPSTICK NEGATIVE (NEG-TRACE); URINE SPECIFIC GRAVITY 1.015; URINE UROBILINOGEN - DIPSTICK 0.2 E.U./dL (0.2)
[2023-01-20 13:31] LABS: URINE NITRITE - DIPSTICK NEGATIVE (Negative)
== END 2023-01-20 12:50 | disposition home or self-care (01) | DRG 440 ==
LOC: ED 14:59 → ED-I 18:30 → ED 18:39 → MS2 18:40
PROVIDERS: Family Medicine; Nurse Practitioner Family; ADMIT Internal Medicine; ATTEND Internal Medicine
DX: K85.20 Alcohol induced acute pancreatitis without necrosis or infection (principal); K86.0 Alcohol-induced chronic pancreatitis; F10.11 Alcohol abuse, in remission; K21.9 Gastro-esophageal reflux disease without esophagitis; F17.210 Nicotine dependence, cigarettes, uncomplicated; Z87.11 Personal history of peptic ulcer disease
CPT/HCPCS: J1650; Q9967; S0164

== ENCOUNTER 2023-03-26 22:09 | Emergency (ER) | payer BC ==
[~2023-03-26] VITALS: Ht 154.9 cm; Wt 66.0 kg
[~2023-03-26 22:09] MED LIST changes: +CREON12000 UNT PO
[2023-03-26 22:40] VITALS: BP 139/91
[2023-03-26] MEDS ORDERED: CEPHALEXIN500 MG PO (23:48)
[2023-03-26] MEDS ORDERED: LORTAB 1010 MG PO (23:48)
[2023-03-26] MEDS ORDERED: BACTRIM DS1 TAB PO (23:48)
[2023-03-27 00:15] VITALS: BP 132/85
== END 2023-03-27 00:15 | disposition home or self-care (01) | DRG 603 ==
LOC: ED 22:09
PROC: 0H9GXZZ Drainage of Left Hand Skin, External Approach (ICD-10-PCS; principal; 2023-03-26)
DX: L02.512 Cutaneous abscess of left hand (principal); F17.200 Nicotine dependence, unspecified, uncomplicated

== ENCOUNTER 2023-08-03 16:42 | Emergency (ER) | payer OTHER ==
[~2023-08-03] VITALS: Ht 154.9 cm; Wt 64.4 kg
[~2023-08-03 16:42] MED LIST changes: +CEPHALEXIN500 MG PO
[2023-08-03 16:48] VITALS: BP 122/78
[2023-08-03 17:00] VITALS: BP 127/84
[2023-08-03 17:31] VITALS: BP 104/71
[2023-08-03 18:00] VITALS: BP 112/69
[2023-08-03 18:30] VITALS: BP 113/68
[2023-08-03] MEDS ORDERED: FLEXERIL5 M1 PO (19:11)
[2023-08-03] MEDS ORDERED: PERCOCET 5/325M1 TAB PO (19:13)
[2023-08-03 19:19] VITALS: BP 113/68
== END 2023-08-03 19:27 | disposition home or self-care (01) | DRG 563 ==
LOC: ED 16:42
DX: S43.401A Unspecified sprain of right shoulder joint, initial encounter (principal); S53.401A Unspecified sprain of right elbow, initial encounter; X50.0XXA Overexertion from strenuous movement or load, initial encounter; Y93.89 Activity, other specified

== ENCOUNTER 2024-03-28 14:59 | Emergency (ER) | payer SELFPAY ==
[2024-03-28] VITALS (9 sets, daily range): BP systolic 83–130; BP diastolic 50–72
[~2024-03-28] VITALS: Ht 154.9 cm; Wt 68.0 kg
[~2024-03-28 14:59] MED LIST changes: +FLEXERIL5 M1 PO
[2024-03-28] MEDS ORDERED: ORPHENADRINE CITRATE 30 MG/ML AMP IM ONE (15:15)
[2024-03-28] MEDS ORDERED: DEXAMETHASONE SOD. PHOSPHATE 10 MG/ML VIAL IM ONE (15:15)
[2024-03-28] MEDS ORDERED: ACETAMINOPHEN 325 MG/TAB PO ONE (15:35)
[2024-03-28 16:10] LABS: URINE BILIRUBIN - DIPSTICK Negative (NEGATIVE); URINE BLOOD DIPSTICK Trace-lysed (NEGATIVE); URINE GLUCOSE - DIPSTICK Negative (NEGATIVE); URINE KETONE Negative (NEGATIVE); URINE LEUK ESTERASE Trace (NEGATIVE); URINE NITRITE - DIPSTICK Negative (Negative); URINE PH 5.5 (4.5-8.0); URINE PROTEIN - DIPSTICK Negative (NEG-TRACE); URINE SPECIFIC GRAVITY >=1.030; URINE UROBILINOGEN - DIPSTICK 0.2 E.U./dL (0.2)
[2024-03-28 16:19] LABS: URINE COLOR Yellow
[2024-03-28] MEDS ORDERED: BACTRIM DS1 TAB PO (16:39)
[2024-03-28] MEDS ORDERED: METHOCARBAMOL500 MG PO (16:39)
[2024-03-28] MEDS ORDERED: MEDDOSEPAK PO (16:39)
== END 2024-03-28 17:00 | disposition home or self-care (01) | DRG 563 ==
LOC: ED 14:59
PROVIDERS: Nurse Practitioner
DX: S39.012A Strain of muscle, fascia and tendon of lower back, initial encounter (principal); L72.3 Sebaceous cyst; F17.200 Nicotine dependence, unspecified, uncomplicated; X50.0XXA Overexertion from strenuous movement or load, initial encounter

== ENCOUNTER 2024-04-20 08:04 | Observation (INO) | payer SELFPAY ==
[2024-04-20] VITALS (19 sets, daily range): BP systolic 84–119; BP diastolic 44–86
[~2024-04-20] VITALS: Ht 154.9 cm; Wt 68.8 kg
[~2024-04-20 08:04] MED LIST changes: +METHOCARBAMOL500 MG PO
[2024-04-20] MEDS ORDERED: SODIUM CHLORIDE 0.9% 1,000 ML BAG IV ONE (08:15)
[2024-04-20] MEDS ORDERED: ONDANSETRON HCl 4 MG/2 ML SDV IV ONE (08:15)
[2024-04-20] MEDS ORDERED: SODIUM CHLORIDE 0.9% 10 ML SYR IV PRN (08:15)
[2024-04-20 08:39] LABS: BASO% 0.3 % (0-3); EOS% 1.9 % (0-8); HEMATOCRIT 46.4 % (37.0-47.0); HEMOGLOBIN 15.1 g/dl (12.0-16.0); IMMATURE GRANULOCYTES 0.2 % (0.0-5.0); LYMPH% 32.9 % (15-41); MEAN CELL VOLUME 96.3 fL CALC (80.0-100.0); MEAN CORPUSCULAR HGB 31.3 pG CALC (26.0-32.0); MEAN CORPUSCULAR HGB CONC 32.5 g/dL CAL (32.0-36.0); MONO% 4.6 % (2-13); NEUT# 5.63 thou/uL (2.00-7.15); NEUT% 60.1 % (42-76); RED BLOOD COUNT 4.82 mill/uL (4.20-5.60); RED CELL DISTRI WIDTH 11.9 % (11.5-15.5)
[2024-04-20] MEDS ORDERED: HYDROmorphone HCL 2 MG/AMP IV ONE (08:45)
[2024-04-20 08:55] LABS: ALBUMIN 4.5 g/dL (3.2-5.0); BILIRUBIN, TOTAL 0.6 mg/dL (0.02-1.3); CREATININE 0.8 mg/dL (0.5-1.0); TOTAL PROTEIN 7.4 g/dL (6.3-8.2)
[2024-04-20 10:38] LABS: URINE BILIRUBIN - DIPSTICK Negative (NEGATIVE); URINE BLOOD DIPSTICK Trace-lysed (NEGATIVE); URINE GLUCOSE - DIPSTICK Negative (NEGATIVE); URINE KETONE Negative (NEGATIVE); URINE NITRITE - DIPSTICK Negative (Negative); URINE PH 5.5 (4.5-8.0); URINE PROTEIN - DIPSTICK Negative (NEG-TRACE); URINE UROBILINOGEN - DIPSTICK 0.2 E.U./dL (0.2)
[2024-04-20] MEDS ORDERED: HYDROmorphone HCL 2 MG/AMP IV STA (10:39)
[2024-04-20 10:50] LABS: URINE COLOR Yellow; URINE EPITHELIAL CELLS MODERATE EPI/hpf (0-FEW); URINE LEUK ESTERASE Small (NEGATIVE); URINE RBC 0-2 RBC/hpf (0-5)
[2024-04-20 10:51] LABS: URINE BACTERIA FEW hpf
[2024-04-20] MEDS ORDERED: SODIUM CHLORIDE 0.9% 1,000 ML IV PRN (11:00)
[2024-04-20] MEDS ORDERED: MAGNESIUM HYDROXIDE 30 ML UDC PO PRN (11:00)
[2024-04-20] MEDS ORDERED: ONDANSETRON HCl 4 MG/2 ML SDV IV PRN (11:05)
[2024-04-20] MEDS ORDERED: HYDROmorphone HCL 2 MG/AMP IV PRN (11:25)
[2024-04-20] MEDS ORDERED: ENOXAPARIN SODIUM 40 MG/0.4 ML SYR SC SCH (21:00)
[2024-04-21 04:50] VITALS: BP 106/69
[2024-04-21 05:03] VITALS: BP 106/69
[2024-04-21 05:24] LABS: BASO% 0.5 % (0-3); EOS% 3.3 % (0-8); HEMATOCRIT 42.4 % (37.0-47.0); HEMOGLOBIN 13.8 g/dl (12.0-16.0); IMMATURE GRANULOCYTES 0.1 % (0.0-5.0); LYMPH% 56.4 % (15-41); MEAN CELL VOLUME 100.2 fL CALC (80.0-100.0); MEAN CORPUSCULAR HGB 32.6 pG CALC (26.0-32.0); MEAN CORPUSCULAR HGB CONC 32.5 g/dL CAL (32.0-36.0); MONO% 4.9 % (2-13); NEUT# 2.64 thou/uL (2.00-7.15); NEUT% 34.8 % (42-76); RED BLOOD COUNT 4.23 mill/uL (4.20-5.60); RED CELL DISTRI WIDTH 11.9 % (11.5-15.5)
[2024-04-21 06:18] LABS: BILIRUBIN, TOTAL 0.4 mg/dL (0.02-1.3); CREATININE 0.7 mg/dL (0.5-1.0); MAGNESIUM 2.2 mg/dL (1.6-2.3); POTASSIUM 4.2 mmol/l (3.5-5.1)
[2024-04-21 06:19] LABS: ALBUMIN 3.4 g/dL (3.2-5.0)
[2024-04-21 07:44] VITALS: BP 110/62
== END 2024-04-21 15:06 | disposition home or self-care (01) | DRG 440 ==
LOC: ED 08:04 → ED-I 08:44 → ED 10:12 → MS2 10:13
PROVIDERS: Family Medicine; Nurse Practitioner Family; ADMIT Internal Medicine; ATTEND Internal Medicine
DX: K85.90 Acute pancreatitis without necrosis or infection, unspecified (principal); K86.1 Other chronic pancreatitis; E11.9 Type 2 diabetes mellitus without complications; Z87.11 Personal history of peptic ulcer disease; F17.210 Nicotine dependence, cigarettes, uncomplicated
CPT/HCPCS: G0378; J1650; Q9967

== ENCOUNTER 2024-07-07 10:46 | Emergency (ER) | payer SELFPAY ==
[2024-07-07] VITALS (10 sets, daily range): BP systolic 104–130; BP diastolic 59–89
[~2024-07-07] VITALS: Ht 154.9 cm; Wt 72.0 kg
== END 2024-07-07 13:09 | disposition home or self-care (01) | DRG 607 ==
LOC: ED 10:46
PROC: 0H90XZZ Drainage of Scalp Skin, External Approach (ICD-10-PCS; principal; 2024-07-07)
DX: L72.3 Sebaceous cyst (principal); L02.811 Cutaneous abscess of head [any part, except face]; E11.9 Type 2 diabetes mellitus without complications; F17.200 Nicotine dependence, unspecified, uncomplicated

== ENCOUNTER 2024-07-29 03:20 | Emergency (ER) | payer SELFPAY ==
[2024-07-29] VITALS (10 sets, daily range): BP systolic 94–177; BP diastolic 50–82
[~2024-07-29] VITALS: Ht 154.9 cm; Wt 63.0 kg
[2024-07-29] MEDS ORDERED: HYDROmorphone HCL 2 MG/AMP IV STA (04:01)
[2024-07-29] MEDS ORDERED: SODIUM CHLORIDE 0.9% 1,000 ML IV STA (04:01)
[2024-07-29] MEDS ORDERED: DiphenhydrAMINE HCL 50 MG/ML SDV IV ONE (04:05)
[2024-07-29] MEDS ORDERED: DIATRIZOATE MEGLUMINE & SODIUM 30 ML/BTL PO ONE (04:05)
[2024-07-29] MEDS ORDERED: PROMETHAZINE HCL 25 MG/ML AMP IV ONE (04:05)
[2024-07-29 04:36] LABS: BASO% 0.2 % (0-3); EOS% 2.2 % (0-8); HEMATOCRIT 42.2 % (37.0-47.0); HEMOGLOBIN 13.8 g/dl (12.0-16.0); IMMATURE GRANULOCYTES 0.5 % (0.0-5.0); LYMPH% 41.1 % (15-41); MEAN CELL VOLUME 95.5 fL CALC (80.0-100.0); MEAN CORPUSCULAR HGB 31.2 pG CALC (26.0-32.0); MEAN CORPUSCULAR HGB CONC 32.7 g/dL CAL (32.0-36.0); MONO% 6.3 % (2-13); NEUT# 4.12 thou/uL (2.00-7.15); NEUT% 49.7 % (42-76); RED BLOOD COUNT 4.42 mill/uL (4.20-5.60); RED CELL DISTRI WIDTH 12.6 % (11.5-15.5)
[2024-07-29 04:44] LABS: URINE BILIRUBIN - DIPSTICK Negative (NEGATIVE); URINE BLOOD DIPSTICK Small (NEGATIVE); URINE GLUCOSE - DIPSTICK Negative (NEGATIVE); URINE KETONE Negative (NEGATIVE); URINE PH 8.5 (4.5-8.0); URINE PROTEIN - DIPSTICK 30 mg/dL (NEG-TRACE); URINE UROBILINOGEN - DIPSTICK 0.2 E.U./dL (0.2)
[2024-07-29 04:46] LABS: BILIRUBIN, TOTAL 0.4 mg/dL (0.02-1.3); MAGNESIUM 2.2 mg/dL (1.6-2.3); POTASSIUM 4.6 mmol/l (3.5-5.1); TOTAL PROTEIN 6.7 g/dL (6.3-8.2)
[2024-07-29 04:47] LABS: URINE COLOR Yellow; URINE LEUK ESTERASE Small (NEGATIVE); URINE NITRITE - DIPSTICK Negative (Negative)
[2024-07-29 04:54] LABS: URINE BACTERIA MODERATE hpf; URINE EPITHELIAL CELLS FEW EPI/hpf (0-FEW); URINE YEAST MANY hpf
[2024-07-29] MEDS ORDERED: CIPROFLOXACN500 MG PO (07:28)
[2024-07-29] MEDS ORDERED: ZOFRAN4 MG/TAB PO (07:28)
[2024-07-29] MEDS ORDERED: METRONIDAZOLE500 MG PO (07:28)
[2024-07-29] MEDS ORDERED: TRAMADOL HYDROC50 M1 PO (07:28)
== END 2024-07-29 07:52 | disposition home or self-care (01) | DRG 391 ==
LOC: ED 03:20
PROVIDERS: Family Medicine
DX: A05.9 Bacterial foodborne intoxication, unspecified (principal); K85.90 Acute pancreatitis without necrosis or infection, unspecified; K86.1 Other chronic pancreatitis; N39.0 Urinary tract infection, site not specified; B34.9 Viral infection, unspecified; N72 Inflammatory disease of cervix uteri; E11.9 Type 2 diabetes mellitus without complications; F17.210 Nicotine dependence, cigarettes, uncomplicated; F19.10 Other psychoactive substance abuse, uncomplicated; Z87.11 Personal history of peptic ulcer disease; B96.4 Proteus (mirabilis) (morganii) as the cause of diseases classified elsewhere
CPT/HCPCS: J1171; J1200; J2550; Q9967

== ENCOUNTER 2024-08-23 16:24 | Emergency (ER) | payer SELFPAY ==
[~2024-08-23 16:24] MED LIST changes: +METRONIDAZOLE500 MG PO; +TRAMADOL HYDROC50 M1 PO
== END 2024-08-23 16:49 | disposition left against medical advice (07) | DRG 951 ==
LOC: ED 16:24 → LWOBS 16:49
DX: Z53.21 Procedure and treatment not carried out due to patient leaving prior to being seen by health care provider (principal)

== ENCOUNTER 2024-09-02 20:45 | Observation (INO) | payer SELFPAY ==
[~2024-09-02] VITALS: Ht 154.9 cm; Wt 68.2 kg
--- NOTE | 2024-09-02 20:45 | NUR ---
PATIENT TO ER ROOM 10 WITH STEADY GAIT.
[2024-09-02 21:07] VITALS: BP 100/64
[2024-09-02 21:16] VITALS: BP 113/55
[2024-09-02 21:23] LABS: URINE BLOOD DIPSTICK Large (NEGATIVE); URINE COLOR Yellow; URINE GLUCOSE - DIPSTICK Negative (NEGATIVE); URINE KETONE Trace mg/dL (NEGATIVE); URINE LEUK ESTERASE Trace (NEGATIVE); URINE NITRITE - DIPSTICK Negative (Negative); URINE PH 5.5 (4.5-8.0); URINE PROTEIN - DIPSTICK 30 mg/dL (NEG-TRACE); URINE SPECIFIC GRAVITY >=1.030; URINE UROBILINOGEN - DIPSTICK 0.2 E.U./dL (0.2)
[2024-09-02 21:24] LABS: BASO% 0.3 % (0-3); EOS% 1.9 % (0-8); HEMATOCRIT 41.8 % (37.0-47.0); HEMOGLOBIN 13.5 g/dl (12.0-16.0); IMMATURE GRANULOCYTES 0.1 % (0.0-5.0); LYMPH% 53.7 % (15-41); MEAN CELL VOLUME 97.7 fL CALC (80.0-100.0); MEAN CORPUSCULAR HGB 31.5 pG CALC (26.0-32.0); MEAN CORPUSCULAR HGB CONC 32.3 g/dL CAL (32.0-36.0); NEUT# 3.6 thou/uL (2.00-7.15); RED BLOOD COUNT 4.28 mill/uL (4.20-5.60)
[2024-09-02 21:24] LABS: URINE MUCUS FEW hpf (NONE-FEW); URINE SQUAMOUS EPITHELIAL CELL MODERATE EPI/hpf (0-FEW)
[2024-09-02 21:25] LABS: URINE BACTERIA FEW hpf
[2024-09-02] MEDS ORDERED: ONDANSETRON HCl 4 MG/2 ML SDV IV ONE (21:25)
[2024-09-02] MEDS ORDERED: SODIUM CHLORIDE 0.9% 1,000 ML IV ONE (21:25)
[2024-09-02 21:30] VITALS: BP 95/60
[2024-09-02] MEDS ORDERED: HYDROmorphone HCL 2 MG/AMP IV ONE (21:30)
[2024-09-02 21:36] LABS: ALBUMIN 4.4 g/dL (3.2-5.0); BILIRUBIN, TOTAL 0.4 mg/dL (0.02-1.3); POTASSIUM 3.9 mmol/l (3.5-5.1); TOTAL PROTEIN 7.5 g/dL (6.3-8.2)
[2024-09-02 21:46] VITALS: BP 59/42
[2024-09-02 21:51] VITALS: BP 102/63
[2024-09-02 22:00] VITALS: BP 94/54
--- NOTE | 2024-09-02 22:40 | NUR ---
PATIENT BACK FROM CT
[2024-09-03] VITALS (16 sets, daily range): BP systolic 80–115; BP diastolic 37–97
--- NOTE | 2024-09-03 | NUR ---
REPORT RECEIVED FROM DIEGO ADDISON AT THIS TIME, CRISTIANO RUNNING, PT AWAITING ADMISSION AT THIS TIME.
[2024-09-03] MEDS ORDERED: HYDROmorphone HCL 2 MG/AMP IV ONE (00:05)
--- NOTE | 2024-09-03 01:07 | NUR ---
ATTEMPTED TO CALL REPORT, NO ANSWER.
--- NOTE | 2024-09-03 01:14 | NUR ---
REPORT GIVEN TO MAYURI DAVIS AT THIS TIME. PT AWAITING TRANSPORT TO [facility] [place].
--- NOTE | 2024-09-03 01:31 | NUR ---
pt transferred to [facility]2 . nurse at bedside. pt stable. good rise and fall of chest AxOx4.
[2024-09-03] MEDS ORDERED: ONDANSETRON HCl 4 MG/2 ML SDV IV PRN (01:45)
[2024-09-03] MEDS ORDERED: SODIUM CHLORIDE 0.9% 1,000 ML IV PRN (01:45)
[2024-09-03] MEDS ORDERED: HYDROmorphone HCL 2 MG/AMP IV PRN (01:45)
[2024-09-03] MEDS ORDERED: CEFEPIME HYDROCHLORIDE 1 GM in SODIUM CHLORIDE 0.9% 50 ML IV SCH (02:00)
--- NOTE | 2024-09-03 02:30 | NUR ---
RECEIVED REPORT FROM ER NURSE SHANDRA CORTEZ. PT TRANSFERRED TO [facility] RM 262 VIA W/C. PT ABLE TO AMBULATE FROM W/C TO BED WITH STEADY GAIT. PT IS A/OX4, RM AIR, C/O MILD PAIN IN ABD (RUQ/EPIGASTRIC REGION) 6 OUT OF 10. PT DID RECEIVE PAIN MEDICATION PER EMAR IN ER. PT ALSO C/O NAUSEA AT THIS TIME. NURSING ASSESSMENT COMPLETED, PT ABD IS DISTENDED BUT SOFT, TENDERNESS NOTED TO RUQ. BOWEL SOUNDS ARE ACTIVE. LBM 09/02/24. IV SITE IS INFILTRATED. NEW IV SITE ACCESS IN RT THUMB. SCHEDULED MEDS, FLUIDS AND PRN NAUSEA MED ADMINSITERED PER EMAR. EDUCATED PT ON POC, DIET AND MED SCHEDULE. VSS. NO S/S OF DISTRESS. PT DID REQUEST "ICEPOP" OFFERED LEMON ICEE. CALL LIGHT WITHIN REACH AND SAFETY PRECAUTIONS IN PLACE.
--- NOTE | 2024-09-03 04:15 | NUR ---
PT LAYING IN BED ON LT SIDE. RESTING COMFORTABLY AT THIS TIME. NO S/S OF DISTRESS. CALL LIGHT WITHIN REACH AND SAFETY PRECAUTIONS IN PLACE. IVF RUNNING PER EMAR.
[2024-09-03 08:05] LABS: BASO% 0.3 % (0-3); EOS% 3.4 % (0-8); HEMATOCRIT 38.7 % (37.0-47.0); HEMOGLOBIN 12.3 g/dl (12.0-16.0); IMMATURE GRANULOCYTES 0.1 % (0.0-5.0); LYMPH% 51.5 % (15-41); MEAN CELL VOLUME 99.7 fL CALC (80.0-100.0); MEAN CORPUSCULAR HGB 31.7 pG CALC (26.0-32.0); MEAN CORPUSCULAR HGB CONC 31.8 g/dL CAL (32.0-36.0); MONO% 5.7 % (2-13); NEUT# 2.61 thou/uL (2.00-7.15); RED BLOOD COUNT 3.88 mill/uL (4.20-5.60)
[2024-09-03 08:28] LABS: BILIRUBIN, TOTAL 0.5 mg/dL (0.02-1.3); CREATININE 0.8 mg/dL (0.5-1.0); MAGNESIUM 2.1 mg/dL (1.6-2.3); POTASSIUM 4.3 mmol/l (3.5-5.1)
[2024-09-03 08:49] LABS: ALBUMIN 3.3 g/dL (3.2-5.0)
[2024-09-03] MEDS ORDERED: Pantoprazole Sodium 40 MG VIAL (Protonix) IV SCH (09:00)
--- NOTE | 2024-09-03 09:16 | NUR ---
BEDSIDE REPORT RECEIVED FROM SUSAN. PT SEEN SITTING UP IN BED WATCHING T.V WITHOUT COMPLAINTS. IV PATENT AND CALL LIGHT IN REACH. WILL MONITOR.
[2024-09-03] MEDS ORDERED: SUCRALFATE 1 GM/TAB PO SCH (13:00)
--- NOTE | 2024-09-03 13:36 | NUR ---
PT INDICATED NO ALLERGY TO TORADL PER DISCUSSION WITH CONNOR PAULINO. PT APPROVED REMOVAL OF TORADOL FROM ALLERGY LIST. SHE INDICATED ASPIRIN WS THE ONLY ONE SHE WAS TO BE CAUTIOUS WITH. REMOVED PER PT APPROVAL.
[2024-09-03] MEDS ORDERED: KETOROLAC TROMETHAMINE 30 MG/ML SDV IV SCH (18:00)
--- NOTE | 2024-09-03 19:28 | NUR ---
SHIFT SUMMARY: PT RESTED IN BED GETTING TO BR TO VOID. C/O INTERMITTENT ABDOMINAL PAIN AND CRAMPING TO RIGHT LOW BACK. PT HAD PELVIC US TODAY AND AWAITING RESULTS. PT TO BE NPO AFTER MN FOR EGD IN AM. IVF MAINTAINED AND PAIN MANAGED WITH ORDERED DILAUDID AND TORADOL. BEDSIDE SHIFT REPORT GIVEN TO OSMANY CORTEZ.
--- NOTE | 2024-09-03 20:05 | NUR ---
Glucose 82
--- NOTE | 2024-09-03 20:15 | NUR ---
PT SLEEPING EASILY AROUSABLE NO DISTRESS NOTED ON ASSESSMENT. VS WNL ON RA LUNGS CLEAR. SKIN INTACT NO EDEMA NOTED. IV FLUIDS CHANGED FROM RIGHT HAND IV TO LEFT DUE TO IT CONSTANTLY BEEPING. PT REMINDED OF PROCEDURE TO BE DONE TOMORROW. NPO AFTER MIDNIGHT AND TO REMOVE EVERYTHING EXCEPT GOWN AND SOAKS. PT STATED UNDERSTANDING. CALL LIGHT WITHIN REACH. PLAN OF CARE ONGOING.
[2024-09-04] VITALS (8 sets, daily range): BP systolic 113–137; BP diastolic 52–75
--- NOTE | 2024-09-04 00:14 | NUR ---
PT ASKING FOR PAIN MEDICATION 8/10. WHEN NURSE ENTERED ROOM PT WAS ASLEEP. WHILE NURSE WAS TALKING TO PT SHE WAS FALLING ASLEEP AGAIN STATING SHE IS HAVING 8/10 ABD AND BACK PAIN. NURSE PROVIDED PAIN MEDICATION.
--- NOTE | 2024-09-04 04:45 | NUR ---
PT AWAKE IV FLUID INFUSION ONGOING. PT REMINDED OF NPO AND TO REMOVED ALL JEWELRY AND PERSONAL BELONGINGS. CALL LIGHT WITHIN REACH. PLAN OF CARE ONGOING.
[2024-09-04 05:21] LABS: BASO% 0.3 % (0-3); EOS% 2.9 % (0-8); HEMOGLOBIN 11.6 g/dl (12.0-16.0); LYMPH% 55.7 % (15-41); MEAN CELL VOLUME 99.4 fL CALC (80.0-100.0); MEAN CORPUSCULAR HGB CONC 32.2 g/dL CAL (32.0-36.0); MONO% 3.7 % (2-13); NEUT# 2.95 thou/uL (2.00-7.15); NEUT% 37.4 % (42-76); RED BLOOD COUNT 3.62 mill/uL (4.20-5.60)
[2024-09-04 05:35] LABS: ALBUMIN 2.9 g/dL (3.2-5.0); CREATININE 0.8 mg/dL (0.5-1.0); MAGNESIUM 1.9 mg/dL (1.6-2.3); TOTAL PROTEIN 5.4 g/dL (6.3-8.2)
[2024-09-04 05:38] LABS: BILIRUBIN, TOTAL 0.2 mg/dL (0.02-1.3)
--- NOTE | 2024-09-04 07:08 | NUR ---
09/04/2024 @0604 PT GLUCOSE IS 86.
--- NOTE | 2024-09-04 07:25 | NUR ---
PT LAYING IN BED RESTING WITH EYES CLOSED, AROUSES EASILY TO VERBAL STIMULI, PT A&O X3, PUPILS PERRL, NORMAL S1 S2 HEART SOUNDS, RESP. EVEN AND UNLABORED, LUNG SOUNDS ARE CLEAR, ABD DISTENDED AND WITH ACTIVE BOWEL SOUNDS, STRONG RADIAL AND PEDAL PULSES, 22G RH IV SL, 22G LH IV WITH NS INFUSING AT PRECRIBED RATE, SAFETY MEASURES REINORCED, CALL TUCKER WITHIN REACH
--- NOTE | 2024-09-04 08:29 | NUR ---
PT TO OR VIA STRETCHER WITH OR STAFF
[2024-09-04] MEDS ORDERED: SODIUM CHLORIDE 0.9% 1,000 ML IV ONE (08:30)
[2024-09-04] MEDS ORDERED: FAMOTIDINE 10MG/ML 2ML SDV IV ONE (09:19)
[2024-09-04 11:05] LABS: URINE BILIRUBIN - DIPSTICK Negative (NEGATIVE); URINE BLOOD DIPSTICK Negative (NEGATIVE); URINE GLUCOSE - DIPSTICK Negative (NEGATIVE); URINE KETONE Negative (NEGATIVE); URINE LEUK ESTERASE Negative (NEGATIVE); URINE NITRITE - DIPSTICK Negative (Negative); URINE PROTEIN - DIPSTICK Negative (NEG-TRACE); URINE SPECIFIC GRAVITY <=1.005; URINE UROBILINOGEN - DIPSTICK 0.2 E.U./dL (0.2)
[2024-09-04 11:06] LABS: URINE COLOR Light yellow
--- NOTE | 2024-09-04 12:00 | NUR ---
PT LAYING IN BED RESTING WITH EYES CLOSED, AROUSES EASILY TO VERBAL STIMULI, PT REMINDED TO CALL FOR ASSISTANCE, CALL TUCKER WITHIN REACH
[2024-09-04] MEDS ORDERED: LIDOCAINE HCL 2% 2ML SDV IV ONE (12:13)
[2024-09-04] MEDS ORDERED: GLYCOPYRROLATE 0.2 MG/ML IV ONE (12:13)
[2024-09-04] MEDS ORDERED: PROPOFOL 200 MG/20 ML VIAL IV ONE (12:13)
--- NOTE | 2024-09-04 13:05 | NUR ---
Discharge instructions given. Patient verbalizes understanding of same. Discharged in stable condition via Wheelchair to Home with friend. All belongings sent with pt.
== END 2024-09-04 13:05 | disposition home or self-care (01) | DRG 439 ==
LOC: ED 20:45 → ED-I 09-03 00:14 → ED 09-03 00:39 → MS2 09-03 00:40
PROVIDERS: Family Medicine; Nurse Practitioner Family; ADMIT Internal Medicine; ATTEND Internal Medicine
PROC: 0DB58ZX Excision of Esophagus, Via Natural or Artificial Opening Endoscopic, Diagnostic (ICD-10-PCS; principal; 2024-09-04)
PROC: 0DB78ZX Excision of Stomach, Pylorus, Via Natural or Artificial Opening Endoscopic, Diagnostic (ICD-10-PCS; 2024-09-04)
DX: K85.90 Acute pancreatitis without necrosis or infection, unspecified (principal); N39.0 Urinary tract infection, site not specified; K86.1 Other chronic pancreatitis; K44.9 Diaphragmatic hernia without obstruction or gangrene; K29.50 Unspecified chronic gastritis without bleeding; K20.90 Esophagitis, unspecified without bleeding; N72 Inflammatory disease of cervix uteri; F19.10 Other psychoactive substance abuse, uncomplicated; F17.210 Nicotine dependence, cigarettes, uncomplicated; Z90.49 Acquired absence of other specified parts of digestive tract; Z90.711 Acquired absence of uterus with remaining cervical stump; Z87.11 Personal history of peptic ulcer disease; Z87.442 Personal history of urinary calculi
CPT/HCPCS: G0378; J0692; J0744; J1171; J1596; J2405; J2470; Q9967

== ENCOUNTER 2024-09-26 22:01 | Emergency (ER) | payer SELFPAY ==
[~2024-09-26] VITALS: Ht 154.9 cm; Wt 68.0 kg
[2024-09-26] MEDS ORDERED: ONDANSETRON HCl 4 MG/2 ML SDV IV ONE (22:20)
[2024-09-26] MEDS ORDERED: HYDROmorphone HCL 2 MG/AMP IV ONE (22:20)
[2024-09-26] MEDS ORDERED: SODIUM CHLORIDE 0.9% 1,000 ML IV ONE (22:20)
[2024-09-26 22:46] VITALS: BP 112/78
[2024-09-26 22:49] LABS: BASO% 0.3 % (0-3); EOS% 2.5 % (0-8); HEMATOCRIT 37.3 % (37.0-47.0); HEMOGLOBIN 12.3 g/dl (12.0-16.0); IMMATURE GRANULOCYTES 0.2 % (0.0-5.0); LYMPH% 51.4 % (15-41); MEAN CELL VOLUME 98.2 fL CALC (80.0-100.0); MEAN CORPUSCULAR HGB 32.4 pG CALC (26.0-32.0); MONO% 6.9 % (2-13); NEUT# 3.55 thou/uL (2.00-7.15); NEUT% 38.7 % (42-76); RED BLOOD COUNT 3.8 mill/uL (4.20-5.60); RED CELL DISTRI WIDTH 13.8 % (11.5-15.5); URINE BILIRUBIN - DIPSTICK Negative (NEGATIVE); URINE BLOOD DIPSTICK Trace-intact (NEGATIVE); URINE GLUCOSE - DIPSTICK Negative (NEGATIVE); URINE KETONE Negative (NEGATIVE); URINE LEUK ESTERASE Trace (NEGATIVE); URINE NITRITE - DIPSTICK Negative (Negative); URINE PH 7.5 (4.5-8.0); URINE PROTEIN - DIPSTICK Negative (NEG-TRACE); URINE UROBILINOGEN - DIPSTICK 0.2 E.U./dL (0.2)
[2024-09-26 22:51] LABS: URINE COLOR Yellow
[2024-09-26 23:04] LABS: CREATININE 0.8 mg/dL (0.5-1.0); POTASSIUM 4.2 mmol/l (3.5-5.1); TOTAL PROTEIN 6.1 g/dL (6.3-8.2)
[2024-09-26 23:10] LABS: ALBUMIN 3.7 g/dL (3.2-5.0); BILIRUBIN, TOTAL 0.3 mg/dL (0.02-1.3); CHOLESTEROL HDL RATIO 2.3 (<4.4 (CALC))
[2024-09-27] MEDS ORDERED: Pantoprazole Sodium 40 MG VIAL (Protonix) IV ONE (00:10)
[2024-09-27] MEDS ORDERED: COLACE100 MG PO (00:10)
[2024-09-27] MEDS ORDERED: PROTONIX40 MG PO (00:10)
[2024-09-27 00:31] VITALS: BP 89/45
[2024-09-27 00:32] VITALS: BP 83/44
[2024-09-27 00:33] VITALS: BP 70/38
[2024-09-27 00:34] VITALS: BP 117/68
== END 2024-09-27 00:15 | disposition home or self-care (01) | DRG 761 ==
LOC: ED 22:01
PROVIDERS: Family Medicine
DX: N83.201 Unspecified ovarian cyst, right side (principal); K59.00 Constipation, unspecified; K29.70 Gastritis, unspecified, without bleeding; E11.9 Type 2 diabetes mellitus without complications; F17.200 Nicotine dependence, unspecified, uncomplicated; Z87.11 Personal history of peptic ulcer disease
CPT/HCPCS: J1171; J2405; J2470